=== PATIENT | female | born 1940 | race Caucasian/White ===

== ENCOUNTER → 2023-06-16 11:34 | Outpatient (REF) | payer OTHER, SELFPAY | LOC: HWRAD 11:34 | PROVIDERS: ATTENDING PHYSICIAN Nurse Practitioner Family | DX: M25.511 Pain in right shoulder (principal) | CPT/HCPCS: 73030 ==

== ENCOUNTER 2023-06-27 14:27 | Inpatient (IN) | payer OTHER, SELFPAY ==
[2023-06-25 11:03] VITALS: BP 119/63; BMI 25.7
--- NOTE | 2023-06-25 11:24 | ED.GENMED ---
History of Present Illness
General
Chief Complaint: Extremity Pain (non-traumatic)
Source: patient and family
Exam Limitations: none
Time Seen by Provider: 06/25/23 11:15
Travel History
Have you had any contact with someone who has COVID-19?: No
Do you have any symptoms of coronavirus? Fever > 100 degrees, chills, cough, shortness of breath, sore throat, loss of taste or smell, muscle aches, or headache?: No
History of Present Illness
History of Present Illness:
See MDM
Past History
Past History
ED Past Medical History: CHF, HTN, Hypercholesterolemia and Other (Hearing impaired)
ED Past Surgical History: Other
Patient has exhibited threatening behavior?: No
PSI?: No
Social History
Tobacco: Non-smoker
Alcohol: None
Drug: None
Personal: Other
Living: alone
Employment: Retired
Family History
Family History: Other
Phy Exam
Physical Exam
Physical Exam:
See MDM
Course
Orders/Labs/Results
Orders:
Orders
06/25/23 11:24
Oxycodone [Roxicodone] 5 mg PO NOW STA
06/25/23 12:25
HYDROmorphone [Dilaudid] 0.5 mg IM NOW STA
06/25/23 13:36
Physical Therapy Consult [Pt Eval And Treat] Urgent
Activity Level: Ambulate
06/25/23 14:10
Complete Blood Count/With Diff Urgent
Comprehensive Metabolic Panel Urgent
Abnormal Lab Results
06/25/23
14:10
WBC 12.8 H 10^3/uL
(4.8-10.8)
Hgb 16.2 H g/dL
(12.0-16.0)
MCH 31.3 H pg
(27.0-31.0)
Abs Immat Gran (auto) 0.1 H 10^3/uL
(0-0.05)
Absolute Neuts (auto) 10.7 H 10^3/uL
(1.4-6.5)
Absolute Lymphs (auto) 1.0 L 10^3/uL
(1.2-3.4)
Absolute Monos (auto) 1.0 H 10^3/uL
(0.1-0.6)
Neutrophils % 83.6 H %
(42.2-75.2)
Lymphocytes % 7.5 L %
(20.5-51.1)
Sodium 134 L mmol/L
(135-145)
BUN 35 H mg/dl
(7-17)
Glucose 103 H mg/dl
(70-99)
06/25/23 14:10
06/25/23 14:10
Vital Signs
Initial and Last Documented VS:
Initial Vital Signs
Temp Pulse Resp BP Pulse Ox
98 F 83 16 119/63 99
06/25/23 11:03 06/25/23 11:03 06/25/23 11:03 06/25/23 11:03 06/25/23 11:03
Last Documented Vital Signs
Temp Pulse Resp BP Pulse Ox
98 F 83 16 119/63 99
06/25/23 11:03 06/25/23 11:03 06/25/23 11:03 06/25/23 11:03 06/25/23 11:03
MDM/Problems Addressed
Differential Diagnosis Includes:
HPI and MDM Narrative:
83-year-old female presenting with right shoulder pain. This has been ongoing for the past several days. Patient and daughter stating that she received an outpatient x-ray showing minimal arthritis. She has since followed up with orthopedist and
had an injection of steroids. She is also Toradol but she stopped taking it due to the side effects
On exam, patient has tenderness with certain shoulder movements, especially external rotation. There is no skin changes to suggest infection. Distal extremity neurovascular intact. Given the recent x-ray, we discussed low utility in getting
x-ray. Patient and daughter agree. I discussed the likely diagnosis of rotator cuff injury/strain. We discussed outpatient MRI and physical therapy. Will give dose of oxycodone and evaluate for side effect
Physical exam
General: Well appearing and non-toxic
HEENT: protecting airway
Neck: appears supple
CV: No evidence of cyanosis
Resp: No accessory muscle use
Abd: Non-distended
Extremities: No deformities. Tenderness with right arm external rotation. Distal extremity neurovascularly intact
Neuro: alert
Psych: Normal affect
Skin: Intact
Problems Addressed including Acute and Chronic Conditions affecting care:
1. Rotator cuff strain
Acuity: acute
Prognosis: stable
Details: Will give oxycodone. She denies chest pain or shortness of breath
Updates
Oxycodone did not help. Patient given IM Dilaudid. Patient now becoming dizzy from the side effect of narcotics. Pain is still uncontrolled. Patient failed physical therapy. Family unable to care for her in this state. Will admit
Differential Diagnosis (but not limited to): Shoulder strain, rotator cuff injury
Testing considered: EKG
Drug therapy (if applicable): OTC meds, please see d/c instruction regarding Rx drugs
Amount and/or Complexity of Data Reviewed
Clinical info obtained from: Patient
External data reviewed: N/A
Labs I independently reviewed (but not limited to): Mild leukocytosis, likely from recent steroid injection
Radiology: N/A
Pulse Ox: not hypoxic
EKG independently reviewed: N/A
Administrative Aide: N/A
Critical Care: N/A
Risk of Complication:
Social Determinants of health: Good social support
Discussed with other providers: Hospitalist
Escalation of Care includes Admit/Obs: given her uncontrolled pain and trouble with ADLs, will admit
Occasional wrong word or 'sound a like' substitutions may have occurred due to the inherent limitations of voice recognition software. Read the chart carefully and recognize, using context, where substitutions have occurred.
*Critical Care Note
Total Time (30-74mins, 75-104mins- exclusive of procedures): Not Applicable
ED Attending Note
-
Portions of this chart may have been created with voice recognition software.� Occasional wrong word or��sound alike� substitutions may have occurred due to the inherent limitations of voice recognition software.
Discharge Plan
Departure
Patient Disposition: Admit
Date of Disposition: 06/25/23
Time of Disposition: 16:53
Admit to: Med/Surg
Presentation/result/management discussed w/ accepting MD/DO: Hospitalist
Discharge Problem:
Rotator cuff strain
Prescriptions:
No Action
therapeutic multivitamin Tablet
1 tab PO DAILY
Eliquis 5 mg Tablet
5 mg PO BID Qty: 6 0RF
furosemide 40 mg Tablet
40 mg PO DAILY 30 Days Qty: 30 0RF
dofetilide 250 mcg Capsule
250 mcg PO Q12H 30 Days Qty: 60 0RF
diltiazem HCl 120 mg tablet
120 mg PO DAILY
tramadol 50 mg tablet
50 mg PO Q6H PRN (Reason: moderate pain)
Patient Comments:
06/25/2023: family states made pt whoozy and did not help with pain relief
fluvoxamine 50 mg tablet
50 mg PO HS
Referrals:
Nestor Marshall CRNP [Non-Admitting Privileges] -
Interventions
Interventions:
*Risk Screen - Suicide Last Done: 06/25/23 11:03
*General Assessment Last Done: 06/25/23 11:36
*Neglect/Abuse Screening Last Done: 06/25/23 11:03
ED- Fall Risk Assessment Last Done: 06/25/23 15:21
*ED COVID-19 Vaccine History Last Done: 06/25/23 11:03
ED-Skin Assessment Last Done: 06/25/23 11:36
ED-Peripheral Vascular Assessment Last Done: 06/25/23 11:37
ED-Musculoskeletal Assessment Last Done: 06/25/23 11:36
[2023-06-25] MEDS: ROXICODONE 5 MG PO (11:34)
[2023-06-25] MEDS: DILAUDID 0.5 MG IM (12:29)
[2023-06-25 14:19] LABS: % Basophils 0.1 % (0-2); % Eosinophils 0.5 % (0-6); % Immature Granulocytes 0.5 % (0-0.5); % Lymphocytes 7.5 % (20.5-51.1); % Monocytes 7.8 % (1.7-9.3); % Neutrophils 83.6 % (42.2-75.2); Absolute Eosinophils 0.1 10^3/uL (0-0.7); Absolute Immature Granulocytes 0.1 10^3/uL (0-0.05); Absolute Neutrophils 10.7 10^3/uL (1.4-6.5); Hematocrit 46.3 % (37.0-47.0); Hemoglobin 16.2 g/dL (12.0-16.0); Mean Corpuscular Hgb 31.3 pg (27.0-31.0); Mean Corpuscular Volume 89.4 fL (81.0-99.0); Mean Platelet Volume 9.4 fL (7.4-10.4); Nucleated Red Blood Cells % 0 %; Platelet Count 167 10^3/uL (130-400); Red Blood Cell Count 5.18 10^6/uL (4.20-5.40); Red Cell Dist. Width 13.1 % (11.5-14.5); White Blood Cell Count 12.8 10^3/uL (4.8-10.8)
[2023-06-25 14:37] LABS: ALT (SGPT) 31 U/L (0-35); AST (SGOT) 28 U/L (14-36); Albumin 3.9 g/dl (3.5-5.0); Alkaline Phosphatase 88 U/L (38-126); Blood Urea Nitrogen 35 mg/dl (7-17); Calcium 9.5 mg/dl (8.4-10.2); Carbon Dioxide 27 mmol/L (22-30); Chloride 100 mmol/L (98-107); Estimated Creatinine Clearance 49 ml/min; Glucose 103 mg/dl (70-99); Sodium 134 mmol/L (135-145); Total Bilirubin 1.3 mg/dl (0.2-1.3); eGFR > 60.00
[2023-06-25 14:44] VITALS: BP 104/71; BP 134/68; BP 135/68; PULSE 62; O2SAT 97
--- NOTE | 2023-06-25 18:53 | HPS.HSE ---
Family Physician
-
Family Physician: Albert Richard
Chief Complaint
-
Intractable pain in the right shoulder and right arm
History of Present Illness
83-year-old female was living independently and she is still driving around and doing as sure but the last 3-week moved in to stay with her son, since the Monday before the last she has been having experiencing severe pain in the right shoulder and
the right arm, started suddenly without any trauma or accident no associated fever or chill or cough or congestion or any change skin: No ulceration, saw orthopedic on Dr. Santi Simeon in [place] where she was injected in the right
shoulder, there were no improvement in contrary the pain and limitation of movement got much worse according to the patient, no redness or swelling of the shoulder the pain mostly around the anterior aspect of the right forearm proximally.
Denies any neck pain or any numbness right upper extremity, but normal range of movement of the wrist and fingers but because of the pain she has limited movement of the right elbow and shoulder.
She and family cannot care for herself therefore brought to the hospital for further evaluation.
She is awake, alert and oriented x 3 hold appropriate conversations.
Also she was given tramadol at home she took 3 pills without much relief, also in the ER given a dose of Dilaudid and oxycodone without much relief.
Medical History
Past Medical History
Past Medical History: Reports Other
Additional Past Medical History:
Past medical history reviewed:
A-fib anticoagulated with Eliquis
Hypertension
Social history:
Independently until 10 days ago she moved in with her son because of the pain, no smoking alcohol use.
Family history: Reviewed and noncontributory
Past Surgical History: Reports Other
Social History
Unable to obtain full social history at this time due to: Other
Family History
Family History: Other
Allergies / Home Medications
Allergies reflects when Allergies were last updated in [facility].
Home Medications with original date entered in [facility]
Allergy/Medication List:
Allergies
Allergy/AdvReac Type Severity Reaction Status Date / Time
No Known Allergies Allergy Verified 06/25/23 11:06
Home Medications
therapeutic multivitamin 1 tab PO DAILY Supplement 04/25/22
apixaban 5 mg tablet (Eliquis) 5 mg PO BID #6 tabs 04/29/22
dofetilide 250 mcg capsule 250 mcg PO Q12H 30 days #60 caps 06/25/22
furosemide 40 mg tablet 40 mg PO DAILY 30 days #30 tabs 06/25/22
diltiazem HCl 120 mg tablet 120 mg PO DAILY 09/15/22
fluvoxamine 50 mg tablet 50 mg PO HS 06/25/23
tramadol 50 mg tablet 50 mg PO Q6H PRN moderate pain 06/25/23
Review of Systems
-
A 12 point ROS was completed and negative except as noted: Yes
Physical Exam
Vital Signs
Vital Signs
Temp Pulse Resp BP Pulse Ox
98 F 83 16 119/63 99
06/25/23 11:03 06/25/23 11:03 06/25/23 11:03 06/25/23 11:03 06/25/23 11:03
Physical exam:
General: Awake, alert and oriented x3, not in distress and holds appropriate conversation.
HEENT: No active discharge, ecchymosis or bruising, moist lips, tongue and mucous membrane.
Eyes: No discharge or red conjunctiva, no nystagmus, pupils are reactive and equal
Neck:Supple, no JVD no bruit no goiter.
Respiratory: Normal AP contour and diameter, normal chest wall movement, normal respiratory effort, no respiratory distress,
Lungs: Good air entry bilaterally, no wheezing or rhonchi, no rales or crackles
Heart: S1, S2 regular, normal rate, no added sound.
Gastrointestinal: Positive bowel sounds, soft, nontender, no guarding or rigidity or organomegaly
Musculoskeletal: Limited movement of the right upper extremity mostly shoulder and elbow because of the pain, no redness or rash or swelling of the right shoulder or elbow or arm area, no bulging or mass, no redness or induration at the site of the
injection of the right shoulder,, no chest wall abnormality or tenderness. All Samina joints and extremities have good range of motion, no muscle tenderness or any joint swelling or tenderness.
Extremities: No pitting edema, good peripheral pulses, good range of motion
Skin: Warm and dry, no ulceration, normal color.
Neurological: Awake, alert and oriented x3, cranial nerve II-XII grossly intact, speech clear and comprehensive, good muscle tone, moves all extremities freely
Psychiatric: Normal mood, normal thought and judgment, normal affect,
Physical Exam
General: Other
Laboratory Results
-
06/25/23 14:10
06/25/23 14:10
Laboratory Results
Total Bilirubin 1.3 mg/dl (0.2-1.3) 06/25/23 14:10
AST 28 U/L (14-36) 06/25/23 14:10
ALT 31 U/L (0-35) 06/25/23 14:10
Alkaline Phosphatase 88 U/L (38-126) 06/25/23 14:10
Data Reviewed
-
Lab Data: Labs Reviewed by me, Discussed with Patient and Discussed with Family
Old Records: Reviewed
Impression/Plan
-
IMPRESSION:
83-year-old female who has been in independent living and driving up to 10 days ago when she experienced sudden severe pain in the right shoulder, she got worse after injection by orthopedic 4 days ago as an outpatient.
Concern for arthritis or rotator cuff tear while biceps muscle tendinitis or rupture could be a possibility, bursitis could be another possibility.
Intractable pain in the right arm with failed outpatient treatment or injection of right shoulder
GERD cervical radiculopathy
Limitation of movement because of the pain in the right arm
A-fib anticoagulated with Eliquis
Hypertension
PLAN:
This is affecting acutely daily living as prior to that she was completely dependent and she was still driving. Will admit the patient get an MRI of upper extremity involving the shoulder and elbow joint as well as arm to assess
Ortho consulted and they been contacted
Not respond to Dilaudid and oxycodone will try morphine as needed and reassess
Avoid NSAIDs because of Eliquis
No evidence of infection or skin lesion of shingle even
Continue Eliquis
Cardizem and dofetilide, because of dofetilide will put on cardiac monitoring unit.
PT OT
Heat pad application
All discussed with the patient and the family
CODE STATUS full code
DVT prophylaxis Eliquis
[2023-06-25 19:11] VITALS: BP 138/75
[2023-06-25 19:12] VITALS: BMI 25.7
[2023-06-25 19:20] VITALS: BMI 25.7
--- NOTE | 2023-06-25 19:23 | TRANSFER ---
pt arrived to 3 via stretcher. pt ambulated to bed and connected to polystyrene bead molder. pt assessed and admission done. pt AAox3 and oriented to room. family at bedside.
[2023-06-25 19:41] VITALS: BP 123/68
--- NOTE | 2023-06-25 19:50 | CON.ORTHO ---
Consultation
-
Date/Time Consultation Requested: 06/25/2023; 1899
Date/Time Consultation Performed: 06/25/2023; 1999
Requesting Provider: unknown
Performing Provider: Shirley Cavazos PA-C for Dr. Horace Mcnair
Reason for Consultation: Right shoulder pain
Consultation - Orthopedics
History
Ms. Loza is an 83-year-old female with past medical history of A-fib and hypertension seen today for evaluation of her right shoulder. She reports onset of pain in her shoulder about 2 weeks ago, and denies any injury or inciting event. She
reports no improvement in her symptoms with time. She initially presented to her PCP who prescribed her a Medrol Dospak. She reports no relief from the steroid, so she presented to see Dr. Hancock in [place] where she received a cortisone
injection. She reports her pain and range of motion became much worse following the injection. She localizes pain to her anterior shoulder, upper arm and elbow. She denies pain that radiates past her elbow. She denies neck pain, numbness or
tingling. She has not received any relief from her symptoms with Tylenol, Dilaudid or oxycodone. She denies symptoms like this in the past. She has not been treated for her neck or shoulder in the past. She lives independently until recently
when she moved in with her son. She reports she has otherwise been feeling well and denies any fever or chills.
Allergies / Home Medications
Allergy/AdvReac Type Severity Reaction Status Date / Time
No Known Allergies Allergy Verified 06/25/23 11:06
Medication Instructions Recorded
therapeutic multivitamin 1 tab PO DAILY Supplement 04/25/22
apixaban 5 mg tablet (Eliquis) 5 mg PO BID #6 tabs 04/29/22
dofetilide 250 mcg capsule 250 mcg PO Q12H 30 days #60 caps 06/25/22
furosemide 40 mg tablet 40 mg PO DAILY 30 days #30 tabs 06/25/22
diltiazem HCl 120 mg tablet 120 mg PO DAILY 09/15/22
fluvoxamine 50 mg tablet 50 mg PO HS 06/25/23
tramadol 50 mg tablet 50 mg PO Q6H PRN moderate pain 06/25/23
Vital Signs / Lab Results
Temp Pulse Resp BP Pulse Ox
97.7 F 80 15 138/75 94
06/25/23 19:11 06/25/23 19:11 06/25/23 19:11 06/25/23 19:11 06/25/23 19:11
06/25/23 14:10
06/25/23 14:10
X-ray of the right shoulder taken today and independently interpreted by me reveal overall well-maintained joint spaces without signs of fracture, dislocation or lesions.
Physical exam:
General: Pleasant female in no acute distress, alert and oriented x 3
Head: Atraumatic, normocephalic
Eyes: Sclera anicteric
Ears: Normal hearing
Heart: No edema
Lungs: Normal work of breathing, no audible wheezing
Right shoulder: Mild edema about the right shoulder compared to contralateral side. No obvious erythema, ecchymosis or lesions. No tenderness to palpation about the cervical spine, shoulder or elbow. Patient has essentially no active range of
motion of her right shoulder and elbow secondary to pain. Full range of motion of the cervical spine. Full range of motion of wrist and hand. Neurovascularly intact distally.
Assessment / Plan
Intractable right shoulder pain
--Haley Mcwilliams has experienced about 2 weeks out right shoulder pain that has become much worse following a cortisone injection four days ago. Her exam is very limited today secondary to pain. MRI of the right shoulder was ordered by medical team,
orthopedics will continue to follow for results. In the interim, continue with pain control per primary. Could consider adding oral steroid as patient is on Eliquis and unable to take NSAIDs. I otherwise recommended ice/heat and topical analgesics.
Will place order for lidocaine patches. She may perform ROM of her shoulder and elbow as tolerated. She would likely benefit from PT/OT while admitted.
[2023-06-25] MEDS: TIKOSYN 250 MCG PO (20:43)
[2023-06-25] MEDS: ELIQUIS 5 MG PO (20:43)
[2023-06-25] MEDS: LUVOX 50 MG PO (21:52)
[2023-06-25 23:23] VITALS: BP 129/71
[2023-06-26] VITALS (7 sets, daily range): BP systolic 114–144; BP diastolic 70–81; PULSE 76–82; O2SAT 95; BMI 25.5
[2023-06-26] MEDS: MORPHINE SULFATE 2 MG IV ×4 (00:45→20:57)
[2023-06-26] MEDS: TIKOSYN 250 MCG PO ×2 (08:47→20:59)
[2023-06-26] MEDS: LASIX 40 MG PO (08:48)
[2023-06-26] MEDS: LIDOCAINE 4% PATCH 1 PATCH TOPICAL (08:48)
[2023-06-26] MEDS: ELIQUIS 5 MG PO ×2 (08:48→20:59)
[2023-06-26] MEDS: CARDIZEM CD 120 MG PO (08:48)
--- NOTE | 2023-06-26 12:48 | CM ---
Chart reviewed and spoke with pt at bedside
Pt reports she lives alone in a 2 story home
Independent, shopping, drives
Has no DME in home
Reports has been to SNF in past - [facility]
Denies HH in past
PCP - Dr Silvia Richard
Pharm - [facility]
Will have ride at d/c
PT saw pt - recs SNF. Pt prefers [facility] or [facility]
Will send referral in [facility]
Plan - anticipate transfer to SNF(TBD) when medically ready
--- NOTE | 2023-06-26 14:22 | W.PN.HOSP.TC ---
Documented by User: Javier Porter MD, Resident 06/26/23 15:22
Today's Communication/Plan
-
Follow up with ortho
ACUTE COMPLETE INTRACAPSULAR RUPTURE of the LONG HEAD BICEPS TENDON
FULL-THICKNESS INSERTIONAL TEAR of the SUPRASPINATUS TEND\\
Assessment / Plan
Assessment / Plan
IMPRESSION:
83-year-old female who has been in independent living and driving up to 10 days ago when she experienced sudden severe pain in the right shoulder, she got worse after injection by orthopedic 4 days ago as an outpatient.
Concern for arthritis or rotator cuff tear while biceps muscle tendinitis or rupture could be a possibility, bursitis could be another possibility.
Intractable pain in the right arm with failed outpatient treatment or injection of right shoulder due to FULL-THICKNESS INSERTIONAL TEAR of the SUPRASPINATUS TEND, ACUTE COMPLETE INTRACAPSULAR RUPTURE of the LONG HEAD BICEPS TENDON
GERD
cervical radiculopathy
Limitation of movement because of the pain in the right arm
A-fib anticoagulated with Eliquis
Hypertension
PLAN:
This is affecting acutely daily living as prior to that she was completely dependent and she was still driving.� Will admit the patient get an MRI of upper extremity involving the shoulder and elbow joint as well as arm to assess
Ortho has seen the patient.
MRI of shoulder showed tear in supraspinatus tendon and complete intracapsular rupture of long head of biceps tendon.
Morphine shot given today - improved pain
Oral steroids can be considered with a PPI to avoid GI bleed, continue F/U with ortho
Avoid NSAIDs because of Eliquis- bleeding risk
MRI of shoulder
1. � ACUTE COMPLETE INTRACAPSULAR RUPTURE of the LONG HEAD BICEPS TENDON with distal retraction of the torn tendon fibers 7 cm into the upper arm.
2. � Acute strain or severe tendinosis in the subscapularis tendon.
3. � FULL-THICKNESS INSERTIONAL TEAR of the SUPRASPINATUS TENDON.
4. � Moderate atrophy of the muscles of the right rotator cuff.
5. � Mild subacromial/subdeltoid bursitis.
No evidence of infection or skin lesion of shingle even
Continue Eliquis for afib
Continue home medications
PT OT
Heat pad application
All discussed with the patient and the family
CODE STATUS full code
DVT prophylaxis Eliquis
Anticipated Discharge: 24 - 48 hours
Subjective/Interval History
-
Date of Service: June 26, 2023
Objective Data
-
Vital Signs:
Vital Signs
Temp Pulse Resp BP Pulse Ox
97.7 F 74 18 125/71 97
06/26/23 11:00 06/26/23 11:00 06/26/23 11:00 06/26/23 11:00 06/26/23 11:00
I&O
06/25/23 06/26/23 06/27/23
06:59 06:59 06:59
Intake Total 440 / 440
Balance 440 / 440
Review of Systems
-
History Source: Patient
Physical Exam
-
General: Appears in Distress and Pain
HEENT: Normocephalic, Atraumatic and Moist Mucous Membranes
Respiratory: Clear to Auscultation
Cardiac: Regular Rhythm
Breast: Deferred by me
Musculoskeletal: Other (intense pain in right UE, limited active range of motion)

Documented by User: Enzo Stewart MD 06/26/23 21:49
Review of Systems
-
All other systems: Reviewed and negative
Constitutional: Reports Fatigue
EENT: Reports No Symptoms Reported
Respiratory: Reports No Symptoms
Cardiac: Reports No Symptoms
Abdomen/GI: Reports No Symptoms
Genitourinary: Reports No Symptoms
Musculoskeletal: Reports Muscle Pain (RUE) and Muscle Weakness
Skin: Reports No Symptoms
Neuro: Reports No Symptoms
Psych: Reports Depressed
Physical Exam
-
GI: Soft, Nontender, Nondistended and Normal Bowel Sounds
Musculoskeletal: No Edema
Neuro: AO x 3; Negative No Motor Deficits
Data Reviewed
-
Diagnostic Radiology: Report Reviewed by me
MRI: Report Reviewed by me
Labs: Labs Reviewed by me and Discussed with Physician
[2023-06-26] MEDS: LUVOX 50 MG PO (21:00)
[2023-06-27] VITALS (7 sets, daily range): BP systolic 108–140; BP diastolic 65–76; PULSE 74; O2SAT 100
[2023-06-27 06:04] LABS: Hematocrit 43.5 % (37.0-47.0); Hemoglobin 14.9 g/dL (12.0-16.0); Mean Corp Hgb Conc. 34.3 g/dL (33.0-37.0); Mean Corpuscular Volume 90.4 fL (81.0-99.0); Mean Platelet Volume 9.9 fL (7.4-10.4); Platelet Count 141 10^3/uL (130-400); Red Blood Cell Count 4.81 10^6/uL (4.20-5.40); Red Cell Dist. Width 13.1 % (11.5-14.5); White Blood Cell Count 8.7 10^3/uL (4.8-10.8)
[2023-06-27 06:34] LABS: Blood Urea Nitrogen 30 mg/dl (7-17); Calcium 8.9 mg/dl (8.4-10.2); Carbon Dioxide 26 mmol/L (22-30); Chloride 104 mmol/L (98-107); Estimated Creatinine Clearance 49 ml/min; Glucose 97 mg/dl (70-99); Potassium 4.2 mmol/L (3.5-5.1); Sodium 131 mmol/L (135-145); eGFR > 60.00
--- NOTE | 2023-06-27 08:01 | W.PN.UPDATE ---
Update Note
Progress Note Update
Patient continues with biceps pain which radiates down towards the elbow. Range of motion still diminished. Exam right shoulder no effusion, warmth, erythema or pain. Generalized pain noted in the biceps and down towards the distal biceps tendon.
Passive motion right elbow and shoulder nonpainful. During range of motion testing there is some burning in the biceps region. Global rotator cuff weakness noted. Subtle Elan muscle noted biceps. Distal neurovascular was intact.
MRI right shoulder shows tear full-thickness tear involving supraspinatus with moderate atrophy, rupture long head biceps tendon with moderate fluid accumulation (likely bleeding) and bursitis. No evidence of fracture, dislocation or shoulder
effusion.
Patient unfortunately had a rupture long head biceps tendon which seems to be primary source of her pain. Since she is on Eliquis she likely had more bleeding in this region which is causing pain in her upper arm. Continue with conservative
treatment modalities for pain and include formal physical therapy. She could consider tapering steroid to help decrease inflammation. This should improve in time. She does have a rotator cuff tear which she can discuss definitive treatment at a
later date with her orthopedic surgeon.
--- NOTE | 2023-06-27 08:02 | W.PN.HOSP.TC ---
Documented by User: Javier Porter MD, Resident 06/27/23 16:09
Today's Communication/Plan
-
SIADH
urine sodium, osmolality, serum sodium, serum osmolality
Assessment / Plan
Assessment / Plan
IMPRESSION:
83-year-old female who has been in independent living and driving up to 10 days ago when she experienced sudden severe pain in the right shoulder, she got worse after injection by orthopedic 4 days ago as an outpatient. MRI confirmed rotator cuff
tear and rupture of long biceps tendon.
Rotator cuff tear and rupture of long biceps tendon
Normovolemic Hyponatremia
GERD
cervical radiculopathy
Limitation of movement because of the pain in the right arm
A-fib anticoagulated with Eliquis
Hypertension
PLAN:
Rotator cuff tear and rupture of long biceps tendon :
This is affecting acutely daily living as prior to that she was completely dependent and she was still driving.� Will admit the patient get an MRI of upper extremity involving the shoulder and elbow joint as well as arm to assess
Ortho has seen the patient.
MRI of shoulder showed tear in supraspinatus tendon and complete intracapsular rupture of long head of biceps tendon.
Morphine shot given today - improved pain
Oral steroids can be considered with a PPI to avoid GI bleed.
Ortho suggested pain management and outpatient f/u for surgery
Avoid NSAIDs because of Eliquis- bleeding risk
MRI of shoulder
1. � ACUTE COMPLETE INTRACAPSULAR RUPTURE of the LONG HEAD BICEPS TENDON with distal retraction of the torn tendon fibers 7 cm into the upper arm.
2. � Acute strain or severe tendinosis in the subscapularis tendon.
3. � FULL-THICKNESS INSERTIONAL TEAR of the SUPRASPINATUS TENDON.
4. � Moderate atrophy of the muscles of the right rotator cuff.
5. � Mild subacromial/subdeltoid bursitis.
Normovolemic Hyponatremia
- Suspect SIADH - fluid restriction to 1800 ml
- checking urine Na, urine osmolality, serum Na, serum osmolality
No evidence of infection or skin lesion of shingle even
Continue Eliquis for afib
Continue home medications
PT OT
Heat pad application
All discussed with the patient and the family
CODE STATUS full code
DVT prophylaxis Eliquis
Anticipated Discharge: Within 24 hours
Subjective/Interval History
-
Date of Service: June 27, 2023
Objective Data
-
Labs:
Laboratory Results
06/27/23
05:27
WBC 8.7
Hgb 14.9
Hct 43.5
Plt Count 141
Sodium 131 L
Potassium 4.2
Chloride 104
Carbon Dioxide 26
BUN 30 H
Creatinine 0.7
Glucose 97
Calcium 8.9
Vital Signs:
Vital Signs
Temp Pulse Resp BP Pulse Ox
97.8 F 67 18 140/76 96
06/27/23 03:00 06/27/23 03:00 06/27/23 03:00 06/27/23 03:00 06/27/23 03:00
I&O
06/26/23 06/27/23 06/28/23
06:59 06:59 06:59
Intake Total 440 / 440 510 / 510
Balance 440 / 440 510 / 510
Review of Systems
-
EENT: Reports No Symptoms Reported
Respiratory: Reports No Symptoms
Cardiac: Reports No Symptoms
Abdomen/GI: Reports No Symptoms
Breast: Reports No Symptoms
Genitourinary: Reports No Symptoms
Musculoskeletal: Reports Joint Pain, Muscle Pain and Muscle Weakness
Skin: Reports No Symptoms
Neuro: Reports No Symptoms
Endocrine: Reports No Symptoms
Physical Exam
-
General: Well Developed and Pain
HEENT: Normocephalic and Atraumatic
Respiratory: Clear to Auscultation
Cardiac: Regular Rhythm
Breast: Deferred by me
GI: Soft, Nontender and Nondistended
Musculoskeletal: No Edema and Other (limited ROM of right shoulder and right arm, can passively extend right arm, no active ROM.)
Skin: Warm and Dry
Neuro: Awake, Alert and Oriented
Hematologic / Lymphatic: No Lymphadenopathy
Psych: Calm

Documented by User: London Stewart MD 06/27/23 21:38
Assessment / Plan
Assessment / Plan
IMPRESSION:
83-year-old female who has been in independent living and driving up to 10 days ago when she experienced sudden severe pain in the right shoulder, she got worse after injection by orthopedic 4 days ago as an outpatient. MRI confirmed rotator cuff
tear and rupture of long biceps tendon.
Rotator cuff tear and rupture of long biceps tendon
Normovolemic Hyponatremia
GERD
cervical radiculopathy
Limitation of movement because of the pain in the right arm
A-fib anticoagulated with Eliquis
Hypertension
PLAN:
Rotator cuff tear and rupture of long biceps tendon :
This is affecting acutely daily living as prior to that she was completely dependent and she was still driving.� Will admit the patient get an MRI of upper extremity involving the shoulder and elbow joint as well as arm to assess
Ortho has seen the patient.
MRI of shoulder showed tear in supraspinatus tendon and complete intracapsular rupture of long head of biceps tendon.
Morphine shot given today - improved pain
Oral steroids can be considered with a PPI to avoid GI bleed.
Ortho suggested pain management and outpatient f/u for surgery
Avoid NSAIDs because of Eliquis- bleeding risk
MRI of shoulder
1. � ACUTE COMPLETE INTRACAPSULAR RUPTURE of the LONG HEAD BICEPS TENDON with distal retraction of the torn tendon fibers 7 cm into the upper arm.
2. � Acute strain or severe tendinosis in the subscapularis tendon.
3. � FULL-THICKNESS INSERTIONAL TEAR of the SUPRASPINATUS TENDON.
4. � Moderate atrophy of the muscles of the right rotator cuff.
5. � Mild subacromial/subdeltoid bursitis.
Normovolemic Hyponatremia
- Suspect SIADH - fluid restriction to 1800 ml
- checking urine Na, urine osmolality, serum Na, serum osmolality
No evidence of infection or skin lesion of shingle even
Continue Eliquis for afib
Continue home medications
PT OT
Heat pad application
All discussed with the patient and the family
CODE STATUS full code
DVT prophylaxis Eliquis
Attending Addendum-
I saw and evaluated the patient. I reviewed the resident�s note and agree with findings and plan as documented in the resident�s note. patient with pain in right arm and shoulder. exam- limited ROM RUE Plan: Rotator Cuff tear and biceps tendon tear-
f/u as OP with patient ortho surgeon as she prefers, start teroids x 5 days add ppi, pain control WBAT Hyponatremia- r/o SIADH fluid restrict
Time spent coordinating care, review of plan of care with resident, review of records, med rec, consults, notes, labs, rads, d/w nursing - 35 mins
Anticipated Discharge: 24 - 48 hours
Review of Systems
-
All other systems: Reviewed and negative
[2023-06-27] MEDS: TIKOSYN 250 MCG PO ×2 (08:38→19:52)
[2023-06-27] MEDS: ELIQUIS 5 MG PO ×2 (08:39→19:52)
[2023-06-27] MEDS: LIDOCAINE 4% PATCH 1 PATCH TOPICAL (08:39)
[2023-06-27] MEDS: LASIX 40 MG PO (08:39)
[2023-06-27] MEDS: CARDIZEM CD 120 MG PO (08:39)
[2023-06-27] MEDS: MORPHINE SULFATE 2 MG IV ×3 (08:49→19:52)
--- NOTE | 2023-06-27 16:15 | CM ---
CM met with pt
Status changed to inpatient
Waiting on PT/OT eval
Plan - snf vs home PT at d/c
[2023-06-27 16:47] LABS: Osmolality Serum 286 mOsm/kg (275-300)
[2023-06-27 16:57] LABS: Sodium 132 mmol/L (135-145)
[2023-06-27 20:39] LABS: Urine Sodium 5 mmol/L (30-90)
[2023-06-27] MEDS: LUVOX 50 MG PO (22:22)
[2023-06-28] VITALS (7 sets, daily range): BP systolic 108–130; BP diastolic 62–75; PULSE 75; BMI 25.3
[2023-06-28] MEDS: LASIX 40 MG PO (07:39)
[2023-06-28] MEDS: PROTONIX 40 MG PO (07:39)
[2023-06-28] MEDS: CARDIZEM CD 120 MG PO (07:39)
[2023-06-28] MEDS: TIKOSYN 250 MCG PO ×2 (07:40→20:59)
[2023-06-28] MEDS: DELTASONE 40 MG PO (07:40)
[2023-06-28] MEDS: LIDOCAINE 4% PATCH 1 PATCH TOPICAL (07:40)
[2023-06-28] MEDS: ELIQUIS 5 MG PO (07:40)
[2023-06-28] MEDS: MORPHINE SULFATE 2 MG IV ×2 (09:10→13:30)
[2023-06-28 09:26] LABS: % Basophils 0.2 % (0-2); % Eosinophils 1.1 % (0-6); % Immature Granulocytes 0.4 % (0-0.5); % Lymphocytes 10.2 % (20.5-51.1); % Monocytes 6.4 % (1.7-9.3); % Neutrophils 81.7 % (42.2-75.2); Absolute Eosinophils 0.1 10^3/uL (0-0.7); Absolute Lymphocytes 1.2 10^3/uL (1.2-3.4); Absolute Monocytes 0.7 10^3/uL (0.1-0.6); Absolute Neutrophils 9.3 10^3/uL (1.4-6.5); Hematocrit 47.8 % (37.0-47.0); Hemoglobin 17.1 g/dL (12.0-16.0); Mean Corp Hgb Conc. 35.8 g/dL (33.0-37.0); Mean Corpuscular Volume 89.5 fL (81.0-99.0); Mean Platelet Volume 9.8 fL (7.4-10.4); Nucleated Red Blood Cells % 0 %; Platelet Count 151 10^3/uL (130-400); Red Blood Cell Count 5.34 10^6/uL (4.20-5.40); White Blood Cell Count 11.3 10^3/uL (4.8-10.8)
[2023-06-28 09:37] LABS: Blood Urea Nitrogen 32 mg/dl (7-17); Calcium 9.2 mg/dl (8.4-10.2); Carbon Dioxide 27 mmol/L (22-30); Chloride 101 mmol/L (98-107); Estimated Creatinine Clearance 49 ml/min; Glucose 110 mg/dl (70-99); Potassium 3.7 mmol/L (3.5-5.1); Sodium 132 mmol/L (135-145); eGFR > 60.00
--- NOTE | 2023-06-28 15:11 | W.PN.UPDATE ---
Update Note
Progress Note Update
Received TT from patient's nurse Suzanna Trish that patient would like orthopedics here at [facility] to do her right shoulder surgery. I was able to review patient's history and MRI with Dr. Mitchell. After discussing she will be sent to
Interventional Radiology to have aspiration of the fluid around the tendon sheath. Fluid will be sent for analysis. She may see improvement with this aspiration, prednisone (which just started) and continued formal physical therapy. Hopefully with
these conservative treatments she may feel better in a few days and can do surgery on more of an elective basis sometime in the near future. Since patient is on Eliquis it will need to be held before proceeding with surgery. 72-hour washout
required. Discussed with London Blanton MD.
[2023-06-28] MEDS: ROXICODONE 5 MG PO (16:57)
--- NOTE | 2023-06-28 17:36 | W.PN.HOSP.TC ---
Addendum entered and electronically signed by London Stewart MD 06/30/23 09:10:
attending addendum 06/28 attached to progress note from 06/27 in error
Enzo Stewart MD
Addendum entered and electronically signed by London Stewart MD 06/29/23 23:16:
Attending Addendum DOS 06/29/23
I saw and evaluated the patient. I reviewed the resident�s note and agree with findings and plan as documented in the resident�s note. continues to complain of extreme pain in right shoulder and biceps but appears comfortable. exam- Gen nad heart
RRR lungs clear abd soft LE trace edema b/l RUE limited ROM-no pain on passive movement
Plan:
# Rotator Cuff tear and biceps tendon tear- s/p IR arthropathy, removal of minimal amount of blood- sent for bx, resume Eliquis after 48 hours, ortho on board appreciate input, f/u as OP for surgery next week, hold Eliquis 72 hours prior, cont
steroids x 5 days cont oral narcs for DC home, cont ppi, WBAT PT OT SW c/s
# Hypovolemic Hyponatremia- r/o SIADH - start IVF repeat labs in am
# A fib- hold eliquis may resume after procedure 48 hours
Dispo Eventual DC home lives alone
Time spent coordinating care, review of plan of care with resident, review of records, med rec, consults, notes, labs, rads, d/w nursing - 35 mins
Addendum entered and electronically signed by London Stewart MD 06/28/23 22:04:
Attending Addendum-06/28/23
I saw and evaluated the patient. I reviewed the resident�s note and agree with findings and plan as documented in the resident�s note. continues to have pain in right arm and shoulder. exam- limited ROM buring sensation in upper arm RUE
Plan:
# Rotator Cuff tear and biceps tendon tear- for IR removal of blood in am, hold eliquis, ortho on board, f/u as OP for surgery next week, hold Eliquis 72 hours prior, cont steroids x 5 days add oral narcs for DC home, add ppi, WBAT PT OT SW c/s
# Hypovolemic Hyponatremia- r/o SIADH fluid restrict check labs na 132 repeat in am
# A fib- hold eliquis may resume after procedure
Time spent coordinating care, review of plan of care with resident, review of records, med rec, consults, notes, labs, rads, d/w nursing - 55 mins
Original Note:
Documented by User: Javier Porter MD, Resident 06/28/23 17:45
Today's Communication/Plan
-
Patient will be going to IR- suspect bleed from tear
-stopping Eliquis 72 prior to surgery
oxycodone
bowel regimen
Assessment / Plan
Assessment / Plan
IMPRESSION:
83-year-old female who has been in independent living and driving up to 10 days ago when she experienced sudden severe pain in the right shoulder, she got worse after injection by orthopedic 4 days ago as an outpatient. MRI confirmed rotator cuff
tear and rupture of long biceps tendon.
Rotator cuff tear and rupture of long biceps tendon
Normovolemic Hyponatremia
GERD
cervical radiculopathy
Limitation of movement because of the pain in the right arm
A-fib anticoagulated with Eliquis
Hypertension
PLAN:
Rotator cuff tear and rupture of long biceps tendon :
This is affecting acutely daily living as prior to that she was completely dependent and she was still driving.� Will admit the patient get an MRI of upper extremity involving the shoulder and elbow joint as well as arm to assess
Ortho has seen the patient.
Oral steroids can be considered with a PPI to avoid GI bleed.
Ortho suggested pain management and outpatient f/u for surgery
Avoid NSAIDs because of Eliquis- bleeding risk
- Ortho has seen patient and suspects bleed from the tear, patient will be going to IR for further evaluation
- Stopping Eliquis 72 hours before surgery
- adding PO Oxycodone q6, continue IV morphine
- Bowel regimen- Miralax
MRI of shoulder
1. � ACUTE COMPLETE INTRACAPSULAR RUPTURE of the LONG HEAD BICEPS TENDON with distal retraction of the torn tendon fibers 7 cm into the upper arm.
2. � Acute strain or severe tendinosis in the subscapularis tendon.
3. � FULL-THICKNESS INSERTIONAL TEAR of the SUPRASPINATUS TENDON.
4. � Moderate atrophy of the muscles of the right rotator cuff.
5. � Mild subacromial/subdeltoid bursitis.
Normovolemic Hyponatremia
- Suspect SIADH - fluid restriction to 1800 ml
- checking urine Na, urine osmolality, serum Na, serum osmolality
- urine sodium and serum sodium low- not likely SIADH
- repeat BMP in am
No evidence of infection or skin lesion of shingle even
Continue Eliquis for afib
Continue home medications
PT OT
Heat pad application
All discussed with the patient and the family
CODE STATUS full code
DVT prophylaxis Eliquis
Attending Addendum-
I saw and evaluated the patient. I reviewed the resident�s note and agree with findings and plan as documented in the resident�s note. patient with pain in right arm and shoulder. exam- limited ROM RUE Plan: Rotator Cuff tear and biceps tendon tear-
f/u as OP with patient ortho surgeon as she prefers, start teroids x 5 days add ppi, pain control WBAT Hyponatremia- r/o SIADH fluid restrict
Time spent coordinating care, review of plan of care with resident, review of records, med rec, consults, notes, labs, rads, d/w nursing - 35 mins
Anticipated Discharge: 24 - 48 hours
Subjective/Interval History
-
Date of Service: June 28, 2023
Objective Data
-
Labs:
Laboratory Results
06/28/23
09:11
WBC 11.3 H
Hgb 17.1 H
Hct 47.8 H
Plt Count 151
Sodium 132 L
Potassium 3.7
Chloride 101
Carbon Dioxide 27
BUN 32 H
Creatinine 0.7
Glucose 110 H
Calcium 9.2
Vital Signs:
Vital Signs
Temp Pulse Resp BP Pulse Ox
98.2 F 75 16 120/66 94
06/28/23 15:00 06/28/23 15:00 06/28/23 15:00 06/28/23 15:00 06/28/23 15:00
I&O
06/27/23 06/28/23 06/29/23
06:59 06:59 06:59
Intake Total 510 / 510 1440 / 1440
Balance 510 / 510 1440 / 1440
Review of Systems
-
All other systems: Reviewed and negative (except as documented )
Musculoskeletal: Reports Joint Pain and Other (limited ROM in right shoulder and right arm )
Physical Exam
-
General: Well Developed and Well Nourished
HEENT: Normocephalic and Atraumatic
Respiratory: Clear to Auscultation
Cardiac: Regular Rhythm
Breast: Deferred by me
GI: Soft, Nontender and Nondistended
Genito-urinary: Deferred by me
Musculoskeletal: No Edema
Skin: Warm and Dry
Neuro: Awake, Alert and Oriented
Hematologic / Lymphatic: No Lymphadenopathy
Psych: Calm
Data Reviewed
-
MRI: Discussed with Physician
Labs: Labs Reviewed by me and Discussed with Physician

Documented by User: London Stewart MD 06/28/23 21:56
Assessment / Plan
Assessment / Plan
IMPRESSION:
83-year-old female who has been in independent living and driving up to 10 days ago when she experienced sudden severe pain in the right shoulder, she got worse after injection by orthopedic 4 days ago as an outpatient. MRI confirmed rotator cuff
tear and rupture of long biceps tendon.
Rotator cuff tear and rupture of long biceps tendon
Normovolemic Hyponatremia
GERD
cervical radiculopathy
Limitation of movement because of the pain in the right arm
A-fib anticoagulated with Eliquis
Hypertension
PLAN:
Rotator cuff tear and rupture of long biceps tendon :
This is affecting acutely daily living as prior to that she was completely dependent and she was still driving.� Will admit the patient get an MRI of upper extremity involving the shoulder and elbow joint as well as arm to assess
Ortho has seen the patient.
Oral steroids can be considered with a PPI to avoid GI bleed.
Ortho suggested pain management and outpatient f/u for surgery
Avoid NSAIDs because of Eliquis- bleeding risk
- Ortho has seen patient and suspects bleed from the tear, patient will be going to IR for further evaluation
- Stopping Eliquis 72 hours before surgery
- adding PO Oxycodone q6, continue IV morphine
- Bowel regimen- Miralax
MRI of shoulder
1. � ACUTE COMPLETE INTRACAPSULAR RUPTURE of the LONG HEAD BICEPS TENDON with distal retraction of the torn tendon fibers 7 cm into the upper arm.
2. � Acute strain or severe tendinosis in the subscapularis tendon.
3. � FULL-THICKNESS INSERTIONAL TEAR of the SUPRASPINATUS TENDON.
4. � Moderate atrophy of the muscles of the right rotator cuff.
5. � Mild subacromial/subdeltoid bursitis.
Normovolemic Hyponatremia
- Suspect SIADH - fluid restriction to 1800 ml
- checking urine Na, urine osmolality, serum Na, serum osmolality
- urine sodium and serum sodium low- not likely SIADH
- repeat BMP in am
No evidence of infection or skin lesion of shingle even
Continue Eliquis for afib
Continue home medications
PT OT
Heat pad application
All discussed with the patient and the family
CODE STATUS full code
DVT prophylaxis Eliquis
Subjective/Interval History
-
Continues to complain of pain in right arm.
Review of Systems
-
Constitutional: Denies Fever or Weight Gain
Respiratory: Reports No Symptoms
Cardiac: Reports No Symptoms
Abdomen/GI: Reports No Symptoms
[2023-06-28] MEDS: MIRALAX PO (18:31)
[2023-06-28] MEDS: LUVOX 50 MG PO (20:59)
[2023-06-28 21:45] LABS: Urine Albumin Trace (Neg - Trace); Urine Bilirubin Negative (Negative); Urine Character Slightly Cloudy (Clear); Urine Color Yellow; Urine Glucose Negative (Negative); Urine Ketone Trace (Negative); Urine Leukocyte 2+ (Negative); Urine Nitrite Negative (Negative); Urine Occult Blood 3+ (Negative); Urine Urobilinogen Negative (Neg - 1+)
[2023-06-28 21:49] LABS: Osmolality Urine 794 mOsm/kg (300-900)
[2023-06-28 21:51] LABS: Urine Squamous Cell 0-2 /LPF (Few); Urine White Cell >100 /HPF (0-5)
[2023-06-28 21:52] LABS: Urine Bacteria Many (Negative)
[2023-06-29] VITALS (7 sets, daily range): BP systolic 71–134; BP diastolic 62–87; PULSE 77; BMI 25.4
[2023-06-29 05:59] LABS: % Basophils 0.2 % (0-2); % Eosinophils 0.3 % (0-6); % Immature Granulocytes 0.5 % (0-0.5); % Lymphocytes 8.3 % (20.5-51.1); % Monocytes 7.8 % (1.7-9.3); % Neutrophils 82.9 % (42.2-75.2); Absolute Immature Granulocytes 0.1 10^3/uL (0-0.05); Absolute Monocytes 0.9 10^3/uL (0.1-0.6); Absolute Neutrophils 9.4 10^3/uL (1.4-6.5); Hematocrit 42.1 % (37.0-47.0); Hemoglobin 14.8 g/dL (12.0-16.0); Mean Corp Hgb Conc. 35.2 g/dL (33.0-37.0); Mean Corpuscular Hgb 31.5 pg (27.0-31.0); Mean Corpuscular Volume 89.6 fL (81.0-99.0); Mean Platelet Volume 9.6 fL (7.4-10.4); Nucleated Red Blood Cells % 0 %; Platelet Count 142 10^3/uL (130-400); Red Cell Dist. Width 12.9 % (11.5-14.5); White Blood Cell Count 11.4 10^3/uL (4.8-10.8)
[2023-06-29 06:18] LABS: Blood Urea Nitrogen 30 mg/dl (7-17); Carbon Dioxide 28 mmol/L (22-30); Chloride 100 mmol/L (98-107); Estimated Creatinine Clearance 49 ml/min; Glucose 116 mg/dl (70-99); Sodium 131 mmol/L (135-145); eGFR > 60.00
--- NOTE | 2023-06-29 08:31 | W.PN.UPDATE ---
Update Note
Progress Note Update
Patient continues with right shoulder pain. Consult placed to IR for aspiration around biceps tendon sheath (per MRI). Expecting this to be a bloody yield, but will send for analysis to rule out infection. At this point would continue with PT, as
well as the steroids she is currently on. Hopefully we will note improvement, but can potentially consider surgical options based on fluid results. Will need an Eliquis washout in the interim. Will follow up on IR aspirate results
[2023-06-29] MEDS: PROTONIX 40 MG PO (09:01)
[2023-06-29] MEDS: TIKOSYN 250 MCG PO ×2 (09:01→20:18)
[2023-06-29] MEDS: LIDOCAINE 4% PATCH 1 PATCH TOPICAL (09:01)
[2023-06-29] MEDS: DELTASONE 40 MG PO (09:01)
[2023-06-29] MEDS: LASIX 40 MG PO (09:02)
[2023-06-29] MEDS: CARDIZEM CD 120 MG PO (09:02)
[2023-06-29] MEDS: MIRALAX 17 GRAMS PO (09:02)
[2023-06-29] MEDS: MORPHINE SULFATE 2 MG IV ×2 (09:19→18:33)
[2023-06-29] MEDS: ROXICODONE 5 MG PO (13:34)
--- NOTE | 2023-06-29 13:40 | W.PN.HOSP.TC ---
Addendum entered and electronically signed by London Stewart MD 06/30/23 09:12:
Attending Addendum DOS 06/29/23
I saw and evaluated the patient. I reviewed the resident�s note and agree with findings and plan as documented in the resident�s note. continues to complain of extreme pain in right shoulder and biceps but appears comfortable. exam- Gen nad heart
RRR lungs clear abd soft LE trace edema b/l RUE limited ROM-no pain on passive movement
Plan:
# Rotator Cuff tear and biceps tendon tear- s/p IR arthropathy, removal of minimal amount of blood- sent for bx, resume Eliquis after 48 hours, ortho on board appreciate input, f/u as OP for surgery next week, hold Eliquis 72 hours prior, cont
steroids x 5 days cont oral narcs for DC home, cont ppi, WBAT PT OT SW c/s
# Hypovolemic Hyponatremia- r/o SIADH - start IVF repeat labs in am
# A fib- hold eliquis may resume after procedure 48 hours
Dispo Eventual DC home lives alone
Time spent coordinating care, review of plan of care with resident, review of records, med rec, consults, notes, labs, rads, d/w nursing - 35 mins
Original Note:
Today's Communication/Plan
-
f/u with ortho and IR
Assessment / Plan
Assessment / Plan
IMPRESSION:
83-year-old female who has been in independent living and driving up to 10 days ago when she experienced sudden severe pain in the right shoulder, she got worse after injection by orthopedic 4 days ago as an outpatient. MRI confirmed rotator cuff
tear and rupture of long biceps tendon.
Rotator cuff tear and rupture of long biceps tendon
Normovolemic Hyponatremia
GERD
cervical radiculopathy
Limitation of movement because of the pain in the right arm
A-fib anticoagulated with Eliquis
Hypertension
PLAN:
Rotator cuff tear and rupture of long biceps tendon :
This is affecting acutely daily living as prior to that she was completely dependent and she was still driving.� Will admit the patient get an MRI of upper extremity involving the shoulder and elbow joint as well as arm to assess
Ortho has seen the patient.
Oral steroids can be considered with a PPI to avoid GI bleed.
Avoid NSAIDs because of Eliquis- bleeding risk
- Ortho has seen patient and suspects bleed from the tear, patient will be going to IR for further evaluation
- Stopping Eliquis 72 hours before surgery
- adding PO Oxycodone q6, continue IV morphine
- Bowel regimen- Miralax
- Await for IR, continue to follow up with the result of aspirate. Following with ortho team.
MRI of shoulder
1. � ACUTE COMPLETE INTRACAPSULAR RUPTURE of the LONG HEAD BICEPS TENDON with distal retraction of the torn tendon fibers 7 cm into the upper arm.
2. � Acute strain or severe tendinosis in the subscapularis tendon.
3. � FULL-THICKNESS INSERTIONAL TEAR of the SUPRASPINATUS TENDON.
4. � Moderate atrophy of the muscles of the right rotator cuff.
5. � Mild subacromial/subdeltoid bursitis.
Normovolemic Hyponatremia
- checking urine Na, urine osmolality, serum Na, serum osmolality
- urine sodium and serum sodium low- not likely SIADH
- repeat BMP in am
No evidence of infection or skin lesion of shingle even
Continue Eliquis for afib
Continue home medications
PT OT
Heat pad application
All discussed with the patient and the family
CODE STATUS full code
DVT prophylaxis Eliquis
Anticipated Discharge: Within 24 hours
Subjective/Interval History
-
Date of Service: June 29, 2023
Patient c/o of persistent pain in right shoulder and right arm.
Objective Data
-
Labs:
Laboratory Results
06/29/23
05:41
WBC 11.4 H
Hgb 14.8
Hct 42.1
Plt Count 142
Sodium 131 L
Potassium 4.0
Chloride 100
Carbon Dioxide 28
BUN 30 H
Creatinine 0.7
Glucose 116 H
Calcium 9.0
Vital Signs:
Vital Signs
Temp Pulse Resp BP Pulse Ox
97.8 F 77 17 130/73 98
06/29/23 12:01 06/29/23 12:01 06/29/23 12:01 06/29/23 12:01 06/29/23 12:01
I&O
06/28/23 06/29/23 06/30/23
06:59 06:59 06:59
Intake Total 1440 / 1440 240 / 240
Balance 1440 / 1440 240 / 240
Review of Systems
-
All other systems: Reviewed and negative (except mentioned )
Musculoskeletal: Reports Joint Pain and Muscle Pain
Physical Exam
-
General: Well Developed and Well Nourished
HEENT: Normocephalic and Atraumatic
Respiratory: Clear to Auscultation
Cardiac: Regular Rhythm and S1/S2
Breast: Deferred by me
GI: Soft, Nontender and Nondistended
Musculoskeletal: No Edema
Skin: Warm and Dry
Neuro: Awake, Alert and Oriented
Hematologic / Lymphatic: No Lymphadenopathy
Psych: Anxious
Data Reviewed
-
Labs: Labs Reviewed by me and Discussed with Physician
[2023-06-29] MEDS: LUVOX 50 MG PO (22:20)
[2023-06-30] VITALS (7 sets, daily range): BP systolic 109–132; BP diastolic 62–72; PULSE 81; O2SAT 95; BMI 25.4
--- NOTE | 2023-06-30 07:24 | W.PN.HOSP.TC ---
Addendum entered and electronically signed by London Stewart MD 06/30/23 23:38:
Attending Addendum
I saw and evaluated the patient. I reviewed the resident�s note and agree with findings and plan as documented in the resident�s note. pain improved doesnt want surgery. seen with son present. advising to get surgery. Patient anxious and hard of
hearing. unable to make up mind. exam- Gen NAD heart RRR lungs clear abd soft LE trace edema b/l RUE limited ROM-no pain on passive movement
Plan:
# Rotator Cuff tear and biceps tendon tear- s/p IR arthrocentesis 06/28, removal of minimal amount of blood- sent for bx- resume Eliquis in am, ortho on board appreciate input, f/u as OP for surgery next week monday if patient agreeable, hold
Eliquis 72 hours prior, f/u ortho in office on monday, complete steroids 07/01, cont oral narcs for DC home but patient now unable to care for herself at home, SW aware PT, cont ppi, WBAT SW c/s
# Asymptomatic Bacteruria- hold off on abx
# Hypovolemic Hyponatremia-cont IVF repeat labs in am
# A fib- restart eliquis in am cont tikosyn/CCB
Dispo-lives alone- requesting SNF on DC DC to [facility] 07/01
Time spent coordinating care, review of plan of care with resident, review of records, med rec, consults, notes, labs, rads, d/w nursing ortho, son, daughter- 50 mins
Original Note:
Today's Communication/Plan
-
Talked to the patient about discharge today. Patient's family cannot take full reponsibility of the patient at home, looking for an available bed at [facility]. Will be discharged in the weekend once the bed is available
Advised patient to f/u with ortho outpatient. Talked to the orthopedist
Assessment / Plan
Assessment / Plan
IMPRESSION:
83-year-old female who has been in independent living and driving up to 10 days ago when she experienced sudden severe pain in the right shoulder, she got worse after injection by orthopedic 4 days ago as an outpatient. MRI confirmed rotator cuff
tear and rupture of long biceps tendon.
Rotator cuff tear and rupture of long biceps tendon
Normovolemic Hyponatremia
GERD
cervical radiculopathy
Limitation of movement because of the pain in the right arm
A-fib anticoagulated with Eliquis
Hypertension
PLAN:
Rotator cuff tear and rupture of long biceps tendon :
This is affecting acutely daily living as prior to that she was completely dependent and she was still driving.� Will admit the patient get an MRI of upper extremity involving the shoulder and elbow joint as well as arm to assess
Ortho has seen the patient.
Oral steroids can be considered with a PPI to avoid GI bleed.
Avoid NSAIDs because of Eliquis- bleeding risk
- Ortho has seen patient and suspects bleed from the tear, patient will be going to IR for further evaluation
- Stopping Eliquis 72 hours before surgery
- adding PO Oxycodone q6, continue IV morphine
- Bowel regimen- Miralax
- talked to the ortho team and they would want patient to follow up outpatient.
- If patient decides on surgery then we would hold Eliquis, if not then we would resume Eliquis.
Biopsy US : IMPRESSION: Ultrasound-guided aspiration right biceps tendon sheath with minimal return of blood-tinged gelatinous fluid as above, sample sent for microbiology.
MRI of shoulder
1. � ACUTE COMPLETE INTRACAPSULAR RUPTURE of the LONG HEAD BICEPS TENDON with distal retraction of the torn tendon fibers 7 cm into the upper arm.
2. � Acute strain or severe tendinosis in the subscapularis tendon.
3. � FULL-THICKNESS INSERTIONAL TEAR of the SUPRASPINATUS TENDON.
4. � Moderate atrophy of the muscles of the right rotator cuff.
5. � Mild subacromial/subdeltoid bursitis.
Normovolemic Hyponatremia
- checking urine Na, urine osmolality, serum Na, serum osmolality
- urine sodium and serum sodium low- not likely SIADH
- repeat BMP in am
No evidence of infection or skin lesion of shingle even
Continue Eliquis for afib
Continue home medications
PT OT
Heat pad application
All discussed with the patient and the family
CODE STATUS full code
DVT prophylaxis Eliquis
Anticipated Discharge: Within 24 hours
Subjective/Interval History
-
Date of Service: June 30, 2023
Patient reports of no pain this morning.
Objective Data
-
Labs:
Laboratory Results
06/30/23
07:15
WBC Pending
Hgb Pending
Hct Pending
Plt Count Pending
Sodium Pending
Potassium Pending
Chloride Pending
Carbon Dioxide Pending
BUN Pending
Creatinine Pending
Glucose Pending
Calcium Pending
Vital Signs:
Vital Signs
Temp Pulse Resp BP Pulse Ox
97.6 F 73 18 126/71 95
06/30/23 03:35 06/30/23 03:35 06/30/23 03:35 06/30/23 03:35 06/30/23 03:35
I&O
06/29/23 06/30/23 07/01/23
06:59 06:59 06:59
Intake Total 240 / 240 520 / 520
Output Total 400 / 400
Balance 240 / 240 120 / 120
Review of Systems
-
History Source: Patient
All other systems: Reviewed and negative (except mentioned )
Musculoskeletal: Reports Muscle Weakness
Psych: Reports Anxious
Physical Exam
-
General: Well Developed
HEENT: Normocephalic and Atraumatic
Respiratory: Clear to Auscultation
Cardiac: Regular Rhythm and S1/S2
Musculoskeletal: Other (limited ROM in right shoulder and arm , sling placed )
Neuro: Awake and Alert
Psych: Anxious
Data Reviewed
-
Labs: Labs Reviewed by me and Discussed with Physician
[2023-06-30 07:41] LABS: % Basophils 0.1 % (0-2); % Eosinophils 0.1 % (0-6); % Immature Granulocytes 0.4 % (0-0.5); % Lymphocytes 9.9 % (20.5-51.1); % Monocytes 8.3 % (1.7-9.3); % Neutrophils 81.2 % (42.2-75.2); Absolute Monocytes 0.9 10^3/uL (0.1-0.6); Absolute Neutrophils 8.3 10^3/uL (1.4-6.5); Hemoglobin 14.2 g/dL (12.0-16.0); Mean Corp Hgb Conc. 34.6 g/dL (33.0-37.0); Mean Corpuscular Hgb 31.3 pg (27.0-31.0); Mean Corpuscular Volume 90.5 fL (81.0-99.0); Mean Platelet Volume 9.9 fL (7.4-10.4); Nucleated Red Blood Cells % 0 %; Platelet Count 142 10^3/uL (130-400); Red Blood Cell Count 4.53 10^6/uL (4.20-5.40); White Blood Cell Count 10.2 10^3/uL (4.8-10.8)
[2023-06-30 08:00] LABS: Blood Urea Nitrogen 28 mg/dl (7-17); Carbon Dioxide 29 mmol/L (22-30); Chloride 98 mmol/L (98-107); Estimated Creatinine Clearance 57 ml/min; Glucose 107 mg/dl (70-99); Potassium 4.1 mmol/L (3.5-5.1); Sodium 132 mmol/L (135-145); eGFR > 60.00
[2023-06-30] MEDS: LIDOCAINE 4% PATCH 1 PATCH TOPICAL (08:51)
[2023-06-30] MEDS: CARDIZEM CD 120 MG PO (08:52)
[2023-06-30] MEDS: TIKOSYN 250 MCG PO ×2 (08:52→20:42)
[2023-06-30] MEDS: DELTASONE 40 MG PO (08:52)
[2023-06-30] MEDS: LASIX 40 MG PO (08:52)
[2023-06-30] MEDS: PROTONIX 40 MG PO (08:52)
[2023-06-30] MEDS: MIRALAX PO (08:54)
--- NOTE | 2023-06-30 09:18 | W.PN.UPDATE ---
Update Note
Progress Note Update
Patient was seen this morning on a.m. rounds. She reports slow improvement of her symptoms. She is pending cultures from ultrasound-guided aspiration of her bicep tendon sheath yesterday with small amount collected and mostly bloody.
-Discussed with the patient primary reason is to rule out infection with fluid seen on her imaging previously
-We discussed with the more likely orthopedic injury/degeneration of her right upper extremity relative to her rotator cuff and bicep tendon this is more mechanical in nature rather than infectious.
-Recommend PT/OT and discharge planning for consideration of skilled unit if necessary; recommend outpatient orthopedic follow-up for consideration in the future of operative intervention if necessary pending negative cultures
--- NOTE | 2023-06-30 09:26 | W.PN.UPDATE ---
Update Note
Progress Note Update
Pt seen and examined.
Agree with PA assessment and plan
Improving with rest, prednisone and aspiration
await culture results, do not anticipate an infection
She does have a rotator cuff tear, and if she remains symptomatic, we will recommend outpatient shoulder arthroscopy.
She could be seen in the office on Monday and potentially scheduled for repair on Monday.
--- NOTE | 2023-06-30 10:53 | CM ---
Addendum entered by Charlene Harrison 06/30/23 15:44:
Auth began in [employer]
Pending Reference # [id number]
Clinicals faxed to [phone]
Addendum entered by Charlene Harrison 06/30/23 14:45:
Pt medically ready for d/c
[facility] can accept Monday
[facility] will review
[facility] - unable to accept
Spoke with pts jimmy Ray
Reports family is not prepared to assist pt at this time if d/c'ed to home
Informed [facility] will have bed Monday - family's first choice
Called and spoke to Soledad [phone] at [facility] - can accept Monday
Will start auth
Plan - [facility] on 07/02/2023
Contact [facility] rubber compounder supervisor Monday [phone]
Report - [phone]
Fax - [phone]
Family can transport pt to facility
Original Note:
Received call from pts daughter Flor
Requesting mother go to rehab at d/c - informed PT/OT recs for snf
Choices given - [facility], [facility] and [facility]
Referred in [facility] - pt accepted at [facility] pending bed availability
Plan - d/c to snf when medically stable - tbd
Will needs auth
[2023-06-30] MEDS: LUVOX 50 MG PO (20:42)
[2023-07-01 03:35] VITALS: BP 121/66
[2023-07-01 06:00] VITALS: BMI 25.4
[2023-07-01 07:00] VITALS: BP 121/70
[2023-07-01 07:30] LABS: Blood Urea Nitrogen 28 mg/dl (7-17); Calcium 8.9 mg/dl (8.4-10.2); Carbon Dioxide 28 mmol/L (22-30); Chloride 98 mmol/L (98-107); Estimated Creatinine Clearance 57 ml/min; Glucose 99 mg/dl (70-99); Potassium 4.1 mmol/L (3.5-5.1); Sodium 132 mmol/L (135-145); eGFR > 60.00
[2023-07-01] MEDS: LIDOCAINE 4% PATCH 1 PATCH TOPICAL (08:42)
[2023-07-01] MEDS: CARDIZEM CD 120 MG PO (08:42)
[2023-07-01] MEDS: MIRALAX 17 GRAMS PO (08:42)
[2023-07-01] MEDS: LASIX 40 MG PO (08:42)
[2023-07-01] MEDS: TIKOSYN 250 MCG PO ×2 (08:42→20:23)
[2023-07-01] MEDS: DELTASONE 40 MG PO (08:43)
[2023-07-01] MEDS: PROTONIX 40 MG PO (08:43)
--- NOTE | 2023-07-01 10:18 | W.PN.UPDATE ---
Update Note
Progress Note Update
- 83-year-old female admitted for significant right shoulder pain following an injection.
- Cultures show no growth.
- She reports a 'miracle' has occurred and she is now able to lift her right shoulder more than she has for the past several days. Reports pain is well-controlled.
- ROM with FE to 120 degrees, ER to 30 degrees without pain. Full ROM elbow/wrist/hand without pain. NTTP over biceps tendon and cuff insertion. No erythema or warmth.
- Current plan is to be discharged to [facility] and follow-up with Dr. Mitchell on an outpatient basis.
- Based on her current symptoms, unlikely that she will require surgical intervention, so recommend that she contact the office on Monday to schedule a follow-up appointment for sometime next week.
- May work with PT/OT to tolerance. May do ADLs as tolerated.
-Will sign off on her for now from an orthopedic standpoint and plan to follow-up with her on an outpatient basis for further treatment recommendations going forward.
[2023-07-01 11:00] VITALS: BP 134/69
[2023-07-01] MEDS: ELIQUIS 5 MG PO ×2 (12:39→20:23)
--- NOTE | 2023-07-01 12:49 | W.PN.HOSP.TC ---
Today's Communication/Plan
-
Monitor vital signs and see plan
Monitor sodium
Pain control
Discharge to SNF when able
Restart Eliquis
Assessment / Plan
Assessment / Plan
Biopsy US : IMPRESSION: Ultrasound-guided aspiration right biceps tendon sheath with minimal return of blood-tinged gelatinous fluid as above, sample sent for microbiology.
MRI of shoulder
1. � ACUTE COMPLETE INTRACAPSULAR RUPTURE of the LONG HEAD BICEPS TENDON with distal retraction of the torn tendon fibers 7 cm into the upper arm.
2. � Acute strain or severe tendinosis in the subscapularis tendon.
3. � FULL-THICKNESS INSERTIONAL TEAR of the SUPRASPINATUS TENDON.
4. � Moderate atrophy of the muscles of the right rotator cuff.
5. � Mild subacromial/subdeltoid bursitis.
IMPRESSION:
83-year-old female who has been in independent living and driving up to 10 days ago when she experienced sudden severe pain in the right shoulder, she got worse after injection by orthopedic 4 days ago as an outpatient. MRI confirmed rotator cuff
tear and rupture of long biceps tendon.
Rotator cuff tear and rupture of long biceps tendon
Normovolemic Hyponatremia
GERD
cervical radiculopathy
Limitation of movement because of the pain in the right arm
A-fib anticoagulated with Eliquis
Hypertension
Asymptomatic bacteriuria
PLAN:
Rotator cuff tear and rupture of long biceps tendon :
This is affecting acutely daily living as prior to that she was completely dependent and she was still driving.� MRI with acute complete intracapsular rupture of the long head biceps tendon, full-thickness insertional tear of the supraspinatus
tendon. Patient seen by orthopedics and recommended to follow-up with them outpatient.
Recent orthopedics recommendation patient likely will not require surgery. Will resume Eliquis.
Ortho following, patient will follow-up with Dr. Mitchell outpatient
Oral steroids can be considered with a PPI to avoid GI bleed.
Avoid NSAIDs because of Eliquis- bleeding risk
- pain control
- Bowel regimen- Miralax
- talked to the ortho team and they would want patient to follow up outpatient.
- If patient decides on surgery then we would hold Eliquis, if not then we would resume Eliquis.
Last to prednisone 07/01
Hold off on antibiotics for asymptomatic bacteriuria
Normovolemic Hyponatremia
- checking urine Na, urine osmolality, serum Na, serum osmolality
- urine sodium and serum sodium low- not likely SIADH
- monitor
No evidence of infection or skin lesion of shingle even
Continue Eliquis for afib
Continue home medications
PT OT
Heat pad application
All discussed with the patient and the family
CODE STATUS full code
DVT prophylaxis Eliquis
General: Well Developed
HEENT: Normocephalic and Atraumatic
Respiratory: Clear to Auscultation
Cardiac: Regular Rhythm and S1/S2
Musculoskeletal: limited ROM in right shoulder and arm , sling placed
Neuro: Awake and Alert
Psych: Anxious
I spent a total of 52 minutes with the patient or on the floor. More than 50% of this time involved counseling and coordination of care.
Anticipated Discharge: Within 24 hours
Subjective/Interval History
-
Date of Service: July 01, 2023
has some pain
Objective Data
-
Labs:
Laboratory Results
07/01/23
05:38
Sodium 132 L
Potassium 4.1
Chloride 98
Carbon Dioxide 28
BUN 28 H
Creatinine 0.6
Glucose 99
Calcium 8.9
Vital Signs:
Vital Signs
Temp Pulse Resp BP Pulse Ox
97.7 F 77 18 134/69 96
07/01/23 11:00 07/01/23 11:00 07/01/23 11:00 07/01/23 11:00 07/01/23 11:00
I&O
06/30/23 07/01/23 07/02/23
06:59 06:59 06:59
Intake Total 520 / 520 840 / 840
Output Total 400 / 400
Balance 120 / 120 840 / 840
[2023-07-01 15:00] VITALS: BP 127/61
[2023-07-01 19:30] VITALS: BP 142/77
[2023-07-01] MEDS: LUVOX 50 MG PO (20:23)
[2023-07-01 23:13] VITALS: BP 115/64
[2023-07-02 03:28] VITALS: BP 115/63
[2023-07-02 05:26] VITALS: BMI 25.6
[2023-07-02 07:00] VITALS: BP 131/72
[2023-07-02 08:08] LABS: Blood Urea Nitrogen 25 mg/dl (7-17); Calcium 8.7 mg/dl (8.4-10.2); Carbon Dioxide 25 mmol/L (22-30); Chloride 99 mmol/L (98-107); Estimated Creatinine Clearance 57 ml/min; Glucose 94 mg/dl (70-99); Potassium 3.9 mmol/L (3.5-5.1); Sodium 133 mmol/L (135-145); eGFR > 60.00
[2023-07-02] MEDS: LIDOCAINE 4% PATCH 1 PATCH TOPICAL (08:32)
[2023-07-02] MEDS: MIRALAX 17 GRAMS PO (08:32)
[2023-07-02] MEDS: PROTONIX 40 MG PO (08:33)
[2023-07-02] MEDS: LASIX 40 MG PO (08:33)
[2023-07-02] MEDS: CARDIZEM CD 120 MG PO (08:33)
[2023-07-02] MEDS: ELIQUIS 5 MG PO (08:35)
[2023-07-02] MEDS: TIKOSYN 250 MCG PO (08:35)
--- NOTE | 2023-07-02 10:14 | CM ---
Addendum entered by TAVARES Miller 07/02/23 13:33:
Patient's daughter, Flor called and was updated. She stated that her son will transport home. Updated Industrial Psychologist and requested that transportation be cancelled.
Addendum entered by TAVARES Miller 07/02/23 11:13:
Medical necessity and transfer sheet completed and provided to [employer] community services officer who will arrange for transfer.
Original Note:
Received authorization from [employer] for 15 days, start date-06/25/2023 NRD 07/09/23. Authorization number, [id number]. Placed a call to [facility] to update. Spoke with Alesia who stated that she can accept patient after 15:00 would be
preferable. Provided auth number to her. Will update RN and salvage clerk on . # For report and fax# in previous CM note.
Plan: Case management will continue to follow and assist with discharge planning. Patient received authorization to go to [facility] today
[2023-07-02 11:00] VITALS: BP 126/66
--- NOTE | 2023-07-02 11:07 | W.PN.HOSP.TC ---
Today's Communication/Plan
-
Monitor vital signs see plan
Pain control
Eliquis restarted
Patient to follow with orthopedics outpatient
Discharge today
Time of discharge 37 minutes
Assessment / Plan
Assessment / Plan
Biopsy US : IMPRESSION: Ultrasound-guided aspiration right biceps tendon sheath with minimal return of blood-tinged gelatinous fluid as above, sample sent for microbiology.
MRI of shoulder
1. � ACUTE COMPLETE INTRACAPSULAR RUPTURE of the LONG HEAD BICEPS TENDON with distal retraction of the torn tendon fibers 7 cm into the upper arm.
2. � Acute strain or severe tendinosis in the subscapularis tendon.
3. � FULL-THICKNESS INSERTIONAL TEAR of the SUPRASPINATUS TENDON.
4. � Moderate atrophy of the muscles of the right rotator cuff.
5. � Mild subacromial/subdeltoid bursitis.
IMPRESSION:
83-year-old female who has been in independent living and driving up to 10 days ago when she experienced sudden severe pain in the right shoulder, she got worse after injection by orthopedic 4 days ago as an outpatient. MRI confirmed rotator cuff
tear and rupture of long biceps tendon.
Rotator cuff tear and rupture of long biceps tendon
Normovolemic Hyponatremia
GERD
cervical radiculopathy
Limitation of movement because of the pain in the right arm
A-fib anticoagulated with Eliquis
Hypertension
Asymptomatic bacteriuria
PLAN:
Rotator cuff tear and rupture of long biceps tendon :
This is affecting acutely daily living as prior to that she was completely dependent and she was still driving.� MRI with acute complete intracapsular rupture of the long head biceps tendon, full-thickness insertional tear of the supraspinatus
tendon. Patient seen by orthopedics and recommended to follow-up with them outpatient.
Recent orthopedics recommendation patient likely will not require surgery. Eliquis resumed
Ortho following, patient will follow-up with Dr. Mitchell outpatient
Oral steroids can be considered with a PPI to avoid GI bleed.
Avoid NSAIDs because of Eliquis- bleeding risk
- pain control
- Bowel regimen- Miralax
- talked to the ortho team and they would want patient to follow up outpatient.
- If patient decides on surgery then we would hold Eliquis, if not then we would resume Eliquis.
Last to prednisone 07/01
Hold off on antibiotics for asymptomatic bacteriuria
Normovolemic Hyponatremia
- checking urine Na, urine osmolality, serum Na, serum osmolality
- urine sodium and serum sodium low- not likely SIADH
- monitor
No evidence of infection or skin lesion of shingle even
Continue Eliquis for afib
Continue home medications
PT OT
Heat pad application
All discussed with the patient and the family
CODE STATUS full code
DVT prophylaxis Eliquis
General: Well Developed
HEENT: Normocephalic and Atraumatic
Respiratory: Clear to Auscultation
Cardiac: Regular Rhythm and S1/S2
Musculoskeletal: limited ROM in right shoulder and arm , sling placed
Neuro: Awake and Alert
Psych: Anxious
Anticipated Discharge: Today
Subjective/Interval History
-
Date of Service: July 02, 2023
denies pain
Objective Data
-
Labs:
Laboratory Results
07/02/23
05:23
Sodium 133 L
Potassium 3.9
Chloride 99
Carbon Dioxide 25
BUN 25 H
Creatinine 0.6
Glucose 94
Calcium 8.7
Vital Signs:
Vital Signs
Temp Pulse Resp BP Pulse Ox
97.8 F 72 16 131/72 95
07/02/23 07:00 07/02/23 07:00 07/02/23 07:00 07/02/23 07:00 07/02/23 07:00
I&O
07/01/23 07/02/23 07/03/23
06:59 06:59 06:59
Intake Total 840 / 840 860 / 860 240 / 240
Balance 840 / 840 860 / 860 240 / 240
--- NOTE | 2023-07-02 11:11 | W.DCSUMMARY ---
Discharge Summary
Discharge Data
Date of Admission: 06/27/23
Date of Discharge: 07/02/23
-
Pending Results: No
Hospital Course
83-year-old female with past medical history of hypertension, hyperlipidemia, A-fib, GERD came to the hospital with sudden severe pain in the right shoulder. Patient had an injection few days ago on her shoulder outpatient. MRI was done which
showed rotator cuff tear and rupture of the long biceps tendon. Patient was seen by orthopedics throughout hospitalization. Initially patient Eliquis was held which was later resumed prior to discharge. Patient was instructed by orthopedics to
follow-up with them closely outpatient to see any further need for surgery. Patient instructed to manage her injury currently with conservative measures. Patient was initially started on prednisone and she finished her course of prednisone on
07/02/2023. Patient was evaluated by physical therapy who recommended SNF. Patient also had hyponatremia which over time was improving. She also had asymptomatic bacteriuria which was not treated. Once patient symptoms were improving, she was
then discharged to SNF with instructions to follow-up closely with all her physicians outpatient.
Discharge Plan
-
Patient Disposition: Long Term/SNF
Discharge Diagnosis/Procedures: Right shoulder rotator cuff tear, rupture long head biceps with hematoma secondary to Eliquis
Ambulatory dysfunction
Hyponatremia
Diet: As tolerated
Activity: As tolerated
Additional Activity: Sling for comfort
Bathing Restrictions: OK to Shower
Activity Restrictions/Additional Instructions:
Sling for comfort
Ice as needed
Follow up Monday or monday with Dr Mitchell
Call for appointment [phone]
Referrals:
Garret Mitcehll MD [Active] - in two to three days
Albert Richard MD [Family Provider] - in less than 1 week
Prescriptions:
New
oxycodone 5 mg Tablet
5 mg PO Q6HPRN PRN (Reason: moderate to severe pain) Qty: 12 0RF
Continued
therapeutic multivitamin Tablet
1 tab PO DAILY
Eliquis 5 mg Tablet
5 mg PO BID Qty: 6 0RF
furosemide 40 mg Tablet
40 mg PO DAILY 30 Days Qty: 30 0RF
dofetilide 250 mcg Capsule
250 mcg PO Q12H 30 Days Qty: 60 0RF
diltiazem HCl 120 mg tablet
120 mg PO DAILY
fluvoxamine 50 mg tablet
50 mg PO HS
Discontinued
tramadol 50 mg tablet
50 mg PO Q6H PRN (Reason: moderate pain)
Patient Comments:
06/25/2023: family states made pt whoozy and did not help with pain relief
Discharge Orders:
Discharge Patient (As Directed); Ordered 07/02/23
Ordered By: Usman Duran
Discharge Date and Time
Discharge Date/Time: 07/02/23 18:10
[2023-07-02 15:00] VITALS: BP 114/63
== END 2023-07-02 18:10 | DRG 563 ==
LOC: 3 WEST ACU 14:27
PROVIDERS: Family Medicine; Radiology Vascular & Interventional Radiology; Student in an Organized Health Care Education/Training Program; ADMITTING PHYSICIAN Internal Medicine; ATTENDING PHYSICIAN Internal Medicine; CONSULT PHYSICIAN Orthopaedic Surgery; EMERGENCY PHYSICIAN Student in an Organized Health Care Education/Training Program; FAMILY PHYSICIAN Internal Medicine Geriatric Medicine
PROC: 0R9J3ZX Drainage of Right Shoulder Joint, Percutaneous Approach, Diagnostic (ICD-10-PCS; 2023-06-29)
DX: S46.011A Strain of muscle(s) and tendon(s) of the rotator cuff of right shoulder, initial encounter (principal); E22.2 Syndrome of inappropriate secretion of antidiuretic hormone; I50.9 Heart failure, unspecified; I11.0 Hypertensive heart disease with heart failure; Z79.01 Long term (current) use of anticoagulants; I48.91 Unspecified atrial fibrillation; M54.12 Radiculopathy, cervical region; K21.9 Gastro-esophageal reflux disease without esophagitis
CPT/HCPCS: 20610; 73221; 76942; 80048; 80053; 81003; 81015; 83930; 83935; 84295; 84300; 85025; 85027; 87015; 87070; 87086; 87088; 87186; 87205; 96372; 97116; 97167; 97530; 97535; 99285

== ENCOUNTER → 2023-07-05 12:02 | Outpatient (REF) | payer OTHER, SELFPAY ==
[2023-07-05 13:12] LABS: % Basophils 0.2 % (0-2); % Eosinophils 2.7 % (0-6); % Immature Granulocytes 0.3 % (0-0.5); % Lymphocytes 16.8 % (20.5-51.1); % Monocytes 9.7 % (1.7-9.3); % Neutrophils 70.3 % (42.2-75.2); Absolute Eosinophils 0.2 10^3/uL (0-0.7); Absolute Lymphocytes 1.1 10^3/uL (1.2-3.4); Absolute Monocytes 0.6 10^3/uL (0.1-0.6); Absolute Neutrophils 4.5 10^3/uL (1.4-6.5); Hematocrit 43.5 % (37.0-47.0); Hemoglobin 14.7 g/dL (12.0-16.0); Mean Corp Hgb Conc. 33.8 g/dL (33.0-37.0); Mean Corpuscular Hgb 31.1 pg (27.0-31.0); Mean Platelet Volume 10.2 fL (7.4-10.4); Nucleated Red Blood Cells % 0 %; Platelet Count 131 10^3/uL (130-400); Red Blood Cell Count 4.73 10^6/uL (4.20-5.40); Red Cell Dist. Width 13.2 % (11.5-14.5); White Blood Cell Count 6.4 10^3/uL (4.8-10.8)
[2023-07-05 13:19] LABS: Blood Urea Nitrogen 27 mg/dl (7-17); Calcium 8.7 mg/dl (8.4-10.2); Carbon Dioxide 27 mmol/L (22-30); Chloride 99 mmol/L (98-107); Glucose 83 mg/dl (70-99); Potassium 3.8 mmol/L (3.5-5.1); Sodium 131 mmol/L (135-145); eGFR > 60.00
== END ==
LOC: OLABPG 12:02
PROVIDERS: ATTENDING PHYSICIAN Family Medicine
DX: I48.0 Paroxysmal atrial fibrillation (principal)
CPT/HCPCS: 36415; 80048; 85025

== ENCOUNTER → 2023-07-20 10:35 | Outpatient (REF) | payer OTHER, SELFPAY | LOC: HWRAD 10:35 | PROVIDERS: ATTENDING PHYSICIAN Internal Medicine Cardiovascular Disease; FAMILY PHYSICIAN Internal Medicine Geriatric Medicine | DX: I50.32 Chronic diastolic (congestive) heart failure (principal); J90 Pleural effusion, not elsewhere classified | CPT/HCPCS: 71046 ==

== ENCOUNTER → 2023-07-24 08:47 | Outpatient (REF) | payer OTHER, SELFPAY ==
[2023-07-24 09:35] VITALS: BP 114/76; BP_SYST 82
[2023-07-24 10:00] VITALS: BP 119/65; BP_SYST 69
[2023-07-24 10:26] VITALS: BP 123/63
[2023-07-24 10:42] LABS: Body Fluid pH 7.48
[2023-07-24 10:54] LABS: Body Fluid Glucose 86 mg/dl; Body Fluid LDH 193 U/L; Body Fluid Protein 4.3 g/dl
[2023-07-24 11:04] LABS: Body Fluid Mononuclear 95.4 %; Body Fluid Polymorphonuclear 4.6 %; Body Fluid WBC 176 /CUMM
[2023-07-24 11:16] LABS: Body Fluid Second Tech EM
== END ==
LOC: RADI 08:47
PROVIDERS: ATTENDING PHYSICIAN Internal Medicine Cardiovascular Disease; FAMILY PHYSICIAN Internal Medicine Geriatric Medicine
DX: J90 Pleural effusion, not elsewhere classified (principal); R06.02 Shortness of breath
CPT/HCPCS: 88305; 32555; 71045; 71270; 74178; 82945; 83615; 83986; 84157; 87015; 87070; 87116; 87205; 88112; 88341; 88342; 89051; Q9967

== ENCOUNTER 2023-07-31 07:56 | Emergency (ER) | payer OTHER, SELFPAY ==
[2023-07-31 08:07] VITALS: BP 113/67
[2023-07-31 09:15] VITALS: BMI 23.8
[2023-07-31 09:19] VITALS: BP 119/62
[2023-07-31 09:42] LABS: % Basophils 0.5 % (0-2); % Eosinophils 0.2 % (0-6); % Immature Granulocytes 0.5 % (0-0.5); % Lymphocytes 7.2 % (20.5-51.1); % Monocytes 8.4 % (1.7-9.3); % Neutrophils 83.2 % (42.2-75.2); Absolute Basophils 0.1 10^3/uL (0-0.2); Absolute Immature Granulocytes 0.1 10^3/uL (0-0.05); Absolute Lymphocytes 0.8 10^3/uL (1.2-3.4); Absolute Monocytes 0.9 10^3/uL (0.1-0.6); Absolute Neutrophils 9.2 10^3/uL (1.4-6.5); Hematocrit 45.3 % (37.0-47.0); Hemoglobin 15.5 g/dL (12.0-16.0); Mean Corp Hgb Conc. 34.2 g/dL (33.0-37.0); Mean Corpuscular Hgb 31.5 pg (27.0-31.0); Mean Corpuscular Volume 92.1 fL (81.0-99.0); Mean Platelet Volume 8.9 fL (7.4-10.4); Nucleated Red Blood Cells % 0 %; Platelet Count 192 10^3/uL (130-400); Red Blood Cell Count 4.92 10^6/uL (4.20-5.40); Red Cell Dist. Width 13.4 % (11.5-14.5)
[2023-07-31 09:53] LABS: ALT (SGPT) 43 U/L (0-35); AST (SGOT) 50 U/L (14-36); Albumin 4.2 g/dl (3.5-5.0); Alkaline Phosphatase 102 U/L (38-126); Blood Urea Nitrogen 12 mg/dl (7-17); Calcium 9.6 mg/dl (8.4-10.2); Carbon Dioxide 25 mmol/L (22-30); Chloride 102 mmol/L (98-107); Estimated Creatinine Clearance 57 ml/min; Glucose 105 mg/dl (70-99); Potassium 4.4 mmol/L (3.5-5.1); Sodium 134 mmol/L (135-145); Total Bilirubin 1.3 mg/dl (0.2-1.3); Total Protein 7.4 g/dl (6.3-8.2); eGFR > 60.00
[2023-07-31 10:00] VITALS: BP 105/57
--- NOTE | 2023-07-31 10:12 | ED.GENMED ---
History of Present Illness
General
Chief Complaint: Headache
Source: patient and family
Time Seen by Provider: 07/31/23 09:10
Travel History
Have you had any contact with someone who has COVID-19?: No
Do you have any symptoms of coronavirus? Fever > 100 degrees, chills, cough, shortness of breath, sore throat, loss of taste or smell, muscle aches, or headache?: No
History of Present Illness
History of Present Illness:
83-year-old female who presents with pain in the base of her skull at her neck. It hurts to move her head. Hurts to rotate her neck or flex at her neck. She states she woke up this way. She denies radiating pain or symptoms into her upper
extremities. No numbness or tingling chest pain. No fevers. No fall. No trauma.
Past History
Past History
ED Past Medical History: Arrthythmia (Atrial fibrillation, anticoagulated), CHF, HTN, Hypercholesterolemia and Other (Hearing impaired)
ED Past Surgical History: Other
Patient has exhibited threatening behavior?: No
PSI?: No
Social History
Tobacco: Non-smoker
Alcohol: None
Drug: None
Personal: Other
Living: alone
Employment: Retired
Family History
Family History: Other
Phy Exam
Physical Exam
Physical Exam:
CONSTITUTIONAL Patient alert and oriented to person, place and time. Well-appearing. Vital signs reviewed.
HEAD atraumatic, normocephalic.
EYES eyelids normal to inspection, Extraocular muscles intact, Conjunctiva normal, Sclera normal.
NECK slightly limited range of motion due to pain. Tenderness clearly at the insertion of the paracervical musculature at the occiput..
RESPIRATORY CHEST No respiratory distress noted, Chest expansion equal
BACK normal inspection, no obvious deformities
UPPER EXTREMITY range of motion normal, Motor strength normal, no cyanosis, no edema.
LOWER EXTREMITY range of motion normal, Motor strength normal, no cyanosis, no edema.
NEURO Speech normal, No focal motor deficits, N[place] coma scale 15, Memory normal, Cranial Nerves intact to screening exam.
SKIN skin warm, dry, and normal in color.
PSYCHIATRIC patient oriented to person place and time, Normal affect.
Course
Orders/Labs/Results
Orders:
Orders
07/31/23 09:[address] [CT Head W/o Iv Contrast] Urgent
Comment:
Reason For Exam: POSTERIOR HEADACHE
07/31/23 09:31
CMP [Comprehensive Metabolic Panel] Urgent
Complete Blood Count/With Diff Urgent
07/31/23 10:11
Acetaminophen [Tylenol] 1,000 mg PO NOW STA
diazePAM [Valium Injection] 2 mg IV NOW STA
Abnormal Lab Results
07/31/23
09:31
WBC 11.0 H 10^3/uL
(4.8-10.8)
MCH 31.5 H pg
(27.0-31.0)
Abs Immat Gran (auto) 0.1 H 10^3/uL
(0-0.05)
Absolute Neuts (auto) 9.2 H 10^3/uL
(1.4-6.5)
Absolute Lymphs (auto) 0.8 L 10^3/uL
(1.2-3.4)
Absolute Monos (auto) 0.9 H 10^3/uL
(0.1-0.6)
Neutrophils % 83.2 H %
(42.2-75.2)
Lymphocytes % 7.2 L %
(20.5-51.1)
Sodium 134 L mmol/L
(135-145)
Creatinine 0.5 L mg/dL
(0.6-1.0)
Glucose 105 H mg/dl
(70-99)
AST 50 H U/L
(14-36)
ALT 43 H U/L
(0-35)
07/31/23 09:31
07/31/23 09:31
Vital Signs
Initial and Last Documented VS:
Initial Vital Signs
Temp Pulse Resp BP Pulse Ox
98.0 F 86 16 113/67 98
07/31/23 08:07 07/31/23 08:07 07/31/23 08:07 07/31/23 08:07 07/31/23 08:07
Last Documented Vital Signs
Temp Pulse Resp BP Pulse Ox
98.0 F 66 21 104/57 97
07/31/23 08:07 07/31/23 11:30 07/31/23 11:30 07/31/23 11:00 07/31/23 11:30
MDM/Problems Addressed
MDM/Problems Addressed:
Cervical musculature spasm
*Radiology
Radiology exam reviewed: preliminary read by ED provider (No obvious intracranial hemorrhage)
*Pulse Oximetry
Patient hypoxic: no
*Critical Care Note
Total Time (30-74mins, 75-104mins- exclusive of procedures): Not Applicable
Data Reviewed
Source: patient
Further Testing Considered But Not Given:
Consider CT C-spine imaging but no injury. Clearly muscular in nature
Patient Management
Escalation/DeEscalation of care consider admission/obs:
Mild improvement. CT negative. Neuroexam normal. Okay for discharge. Tylenol, rest, warm compresses and Valium as needed
ED Attending Note
-
Portions of this chart may have been created with voice recognition software.� Occasional wrong word or��sound alike� substitutions may have occurred due to the inherent limitations of voice recognition software.
Discharge Plan
Departure
Patient Disposition: Home (Routine Discharge)
Date of Disposition: 07/31/23
Time of Disposition: 12:10
Patient with high blood pressure during this ER visit?: No
Discharge Problem:
Cervical paraspinal muscle spasm
Instructions: Muscle Spasms (DC)
Prescriptions:
New
diazepam 2 mg tablet
2 mg PO TID PRN (Reason: muscle spasm) Qty: 10 0RF
No Action
therapeutic multivitamin Tablet
1 tab PO DAILY
Eliquis 5 mg Tablet
5 mg PO BID Qty: 6 0RF
furosemide 40 mg Tablet
40 mg PO DAILY 30 Days Qty: 30 0RF
dofetilide 250 mcg Capsule
250 mcg PO Q12H 30 Days Qty: 60 0RF
diltiazem HCl 120 mg tablet
120 mg PO DAILY
fluvoxamine 50 mg tablet
50 mg PO HS
oxycodone 5 mg Tablet
5 mg PO Q6HPRN PRN (Reason: moderate to severe pain) Qty: 12 0RF
Referrals:
Albert Richard MD [Family Provider] -
Activity Restrictions/Additional Instructions:
Please use warm compresses. Please use Tylenol for pain. Please rest. Return for numbness, tingling, worsening symptoms or any other concerns.
Interventions
Interventions:
*Risk Screen - Suicide Last Done: 07/31/23 09:18
*General Assessment Last Done: 07/31/23 09:18
*Neglect/Abuse Screening Last Done: 07/31/23 09:18
ED- Fall Risk Assessment Last Done: 07/31/23 09:18
*ED COVID-19 Vaccine History Last Done: 07/31/23 08:07
ED- Neurological Assessment Last Done: 07/31/23 09:18
Discharge Date and Time
Print Language: ARMENIAN
[2023-07-31] MEDS: VALIUM INJECTION 2 MG IV (10:28)
[2023-07-31] MEDS: TYLENOL 1000 MG PO (10:28)
[2023-07-31 11:00] VITALS: BP 104/57
[2023-07-31 12:00] VITALS: BP 102/56
== END 2023-07-31 13:03 | disposition home or self-care (01) ==
LOC: EMR 07:56
PROVIDERS: EMERGENCY PHYSICIAN Emergency Medicine; FAMILY PHYSICIAN Internal Medicine Geriatric Medicine
DX: M62.838 Other muscle spasm (principal)
CPT/HCPCS: 99284; 96374; 70450; 80053; 85025

== ENCOUNTER → 2023-08-24 17:06 | Outpatient (REF) | payer OTHER, SELFPAY | LOC: HWRAD 17:06 | PROVIDERS: ATTENDING PHYSICIAN Internal Medicine Cardiovascular Disease; FAMILY PHYSICIAN Internal Medicine Geriatric Medicine | DX: J90 Pleural effusion, not elsewhere classified (principal); R06.09 Other forms of dyspnea | CPT/HCPCS: 71046 ==

== ENCOUNTER → 2023-09-18 12:18 | Outpatient (REF) | payer OTHER, SELFPAY ==
[2023-09-18 13:00] VITALS: BP 146/79; BP_SYST 80
[2023-09-18 14:02] VITALS: BP 132/69; BP_SYST 74
[2023-09-18 14:41] VITALS: BP 128/67
[2023-09-18 14:57] LABS: Body Fluid Glucose 83 mg/dl; Body Fluid LDH 289 U/L; Body Fluid Protein 4.7 g/dl
[2023-09-18 15:15] LABS: Body Fluid Mononuclear 98.7 %; Body Fluid Polymorphonuclear 1.3 %; Body Fluid WBC 1447 /CUMM
[2023-09-18 15:31] LABS: Body Fluid Second Tech FB
== END ==
LOC: RADI 12:18
PROVIDERS: ATTENDING PHYSICIAN Internal Medicine Cardiovascular Disease; FAMILY PHYSICIAN Internal Medicine Geriatric Medicine
DX: J90 Pleural effusion, not elsewhere classified (principal)
CPT/HCPCS: 88305; 32555; 71045; 82945; 83615; 84157; 87015; 87070; 87205; 88112; 88341; 88342; 89051

== ENCOUNTER → 2023-10-18 10:06 | Outpatient (REF) | payer OTHER, SELFPAY | LOC: HWRAD 10:06 | PROVIDERS: ATTENDING PHYSICIAN Internal Medicine Geriatric Medicine | DX: R79.89 Other specified abnormal findings of blood chemistry (principal) | CPT/HCPCS: 76700 ==

== ENCOUNTER → 2023-10-31 12:17 | Outpatient (REF) | payer OTHER, SELFPAY | LOC: HWRAD 12:17 | PROVIDERS: ATTENDING PHYSICIAN Nurse Practitioner Adult Health; FAMILY PHYSICIAN Internal Medicine Geriatric Medicine | DX: J90 Pleural effusion, not elsewhere classified (principal) | CPT/HCPCS: 71046 ==

== ENCOUNTER → 2023-12-05 08:09 | Outpatient (REF) | payer OTHER, SELFPAY | LOC: PAVMRI 08:09 | PROVIDERS: ATTENDING PHYSICIAN Internal Medicine Geriatric Medicine | DX: R74.8 Abnormal levels of other serum enzymes (principal) | CPT/HCPCS: 74181 ==

== ENCOUNTER → 2024-01-02 13:26 | Outpatient (REF) | payer OTHER, SELFPAY | LOC: HWRCS 13:26 | PROVIDERS: ATTENDING PHYSICIAN Internal Medicine Geriatric Medicine | DX: I10 Essential (primary) hypertension (principal) | CPT/HCPCS: 93306 ==

== ENCOUNTER → 2024-01-22 12:20 | Outpatient (REF) | payer OTHER, SELFPAY | LOC: HWWDC 12:20 | PROVIDERS: ATTENDING PHYSICIAN Internal Medicine Geriatric Medicine | DX: Z12.31 Encounter for screening mammogram for malignant neoplasm of breast (principal) | CPT/HCPCS: 77063; 77067 ==

== ENCOUNTER → 2024-02-01 08:50 | Outpatient (REF) | payer OTHER, SELFPAY | LOC: WDC 08:50 | PROVIDERS: ATTENDING PHYSICIAN Internal Medicine Geriatric Medicine | DX: R92.8 Other abnormal and inconclusive findings on diagnostic imaging of breast (principal) | CPT/HCPCS: 76642 ==

== ENCOUNTER → 2024-02-02 10:11 | Outpatient (REF) | payer OTHER, SELFPAY | LOC: RAD 10:11 | PROVIDERS: ATTENDING PHYSICIAN Internal Medicine Geriatric Medicine; REFERRING PHYSICIAN Internal Medicine Cardiovascular Disease | DX: I10 Essential (primary) hypertension (principal); I48.0 Paroxysmal atrial fibrillation; E78.2 Mixed hyperlipidemia; I35.0 Nonrheumatic aortic (valve) stenosis; E55.9 Vitamin D deficiency, unspecified; R06.09 Other forms of dyspnea; M76.31 Iliotibial band syndrome, right leg; F43.21 Adjustment disorder with depressed mood; I50.30 Unspecified diastolic (congestive) heart failure; I25.10 Atherosclerotic heart disease of native coronary artery without angina pectoris; Z13.89 Encounter for screening for other disorder; M17.11 Unilateral primary osteoarthritis, right knee; R25.1 Tremor, unspecified; J90 Pleural effusion, not elsewhere classified; R74.8 Abnormal levels of other serum enzymes; K83.1 Obstruction of bile duct | CPT/HCPCS: 78803; A9538 ==

== ENCOUNTER → 2024-03-11 10:17 | Outpatient (REF) | payer OTHER, SELFPAY | LOC: HWRAD 10:17 | PROVIDERS: ATTENDING PHYSICIAN Internal Medicine Geriatric Medicine | DX: I10 Essential (primary) hypertension (principal); I48.0 Paroxysmal atrial fibrillation; E78.2 Mixed hyperlipidemia; I35.0 Nonrheumatic aortic (valve) stenosis; E55.9 Vitamin D deficiency, unspecified; R06.09 Other forms of dyspnea; M76.31 Iliotibial band syndrome, right leg; F43.21 Adjustment disorder with depressed mood; I50.30 Unspecified diastolic (congestive) heart failure; I25.10 Atherosclerotic heart disease of native coronary artery without angina pectoris; Z13.89 Encounter for screening for other disorder; M17.11 Unilateral primary osteoarthritis, right knee; R25.1 Tremor, unspecified; R74.8 Abnormal levels of other serum enzymes; K83.1 Obstruction of bile duct | CPT/HCPCS: 71046 ==

== ENCOUNTER → 2024-03-28 10:53 | Outpatient (REF) | payer OTHER, SELFPAY | LOC: HWRAD 10:53 | PROVIDERS: ATTENDING PHYSICIAN Internal Medicine Geriatric Medicine; REFERRING PHYSICIAN Internal Medicine Cardiovascular Disease | DX: J90 Pleural effusion, not elsewhere classified (principal) | CPT/HCPCS: 76604 ==

== ENCOUNTER 2024-05-30 15:42 | Observation (INO) | payer OTHER, SELFPAY ==
[2024-05-30] VITALS (9 sets, daily range): BP systolic 101–143; BP diastolic 56–85; BMI 21.6
[2024-05-30 12:30] LABS: % Basophils 0.8 % (0-2); % Eosinophils 0.3 % (0-6); % Immature Granulocytes 0.3 % (0-0.5); % Lymphocytes 12.5 % (20.5-51.1); % Monocytes 11.3 % (1.7-9.3); % Neutrophils 74.8 % (42.2-75.2); Absolute Basophils 0.1 10^3/uL (0-0.2); Absolute Lymphocytes 0.8 10^3/uL (1.2-3.4); Absolute Monocytes 0.7 10^3/uL (0.1-0.6); Absolute Neutrophils 4.5 10^3/uL (1.4-6.5); Hematocrit 40.8 % (37.0-47.0); Hemoglobin 13.4 g/dL (12.0-16.0); Mean Corp Hgb Conc. 32.8 g/dL (33.0-37.0); Mean Corpuscular Hgb 27.9 pg (27.0-31.0); Mean Platelet Volume 9.4 fL (7.4-10.4); Nucleated Red Blood Cells % 0 %; Platelet Count 183 10^3/uL (130-400); Red Cell Dist. Width 15.9 % (11.5-14.5)
[2024-05-30 12:41] LABS: D-Dimer 0.57 ug/mlFEU (0.00-0.50)
--- NOTE | 2024-05-30 12:49 | ED.GENMED ---
History of Present Illness
General
Chief Complaint: Breathing Problem
Source: patient and family
Exam Limitations: none
Time Seen by Provider: 05/30/24 11:12
History of Present Illness
History of Present Illness:
83-year-old female complaining of shortness of breath with exertion. This has been going on for probably 6 to 9 months. However progressive over the last few weeks. Woke up short of breath 2 nights ago. Short distances because this shortness of
breath. No chest pain although did describe a pressure in her chest this morning to the daughter. No pleuritic pain no fever
Past History
Past History
ED Past Medical History: Arrthythmia (Atrial fibrillation, anticoagulated), CHF, HTN, Hypercholesterolemia and Other (Hearing impaired)
ED Past Surgical History: Appendectomy, Cholecystectomy, Gynecological and Orthopedic
Patient has exhibited threatening behavior?: No
PSI?: No
Social History
Tobacco: Non-smoker
Alcohol: None
Drug: None
Personal: Other
Living: alone
Employment: Retired
Family History
Family History: Other
Phy Exam
Physical Exam
Physical Exam:
GENERAL: Alert and oriented in no apparent distress
EYE: Orbits normal.
NECK: Supple. No thyroid palpable
ENT: Pharynx without erythema
CARDIAC: Regular rate and rhythm without any obvious murmurs.
LUNGS: Clear breath sounds,normal
ABDOMEN: Soft, without focal tenderness or distention
NEUROLOGICAL: Alert and oriented , grossly non-focal
SKIN: Warm and dry, no rash or lesion, no discoloration, skin intact.
MUSCULOSKELETAL: No edema,no deformity.Good color
PSYCH: Normal and appropriate interaction.
Scores
Heart Failure Risk
Heart Failure Risk Score: Not Applicable
Course
Orders/Labs/Results
Orders:
Orders
05/30/24 10:34
Electrocardiogram (*1) Urgent
Reason for Study: Shortness of Breath
EKG- Treatment ONCE
05/30/24 11:21
Cardiac Monitoring- Treatment ONCE
IV Insert/Care/Rem.- Treatment PRN
CR Chest - 2 Views Urgent
Comment:
Reason For Exam: Short of breath with exertion
Pulse Ox/cont/shift [RESP] Stat
Quantity: 1
05/30/24 12:21
D-Dimer Urgent
NT-proBNP Urgent
Troponin I Urgent
05/30/24 12:22
Complete Blood Count/With Diff Urgent
05/30/24 Dinner
Cholesterol Lowering
At Your Request: Full Participation
Does patient need a safe tray?: No
Cholesterol Lowering: Sodium, 2 Gram
05/30/24 15:33
CT Chest W/o Iv Contrast Urgent
Comment:
Reason For Exam: left sided plueral effusion
05/30/24 15:35
Admit/Transfer Patient As Directed
Co-Sign Provider:
Level of Care: Observation services
Assign to:: Telemetry
Physician / Group: elsy leon
Diagnosis: chest pain concern angina, coates likely plueral eff left side
Reason for Telemetry: Arrhythmia
Date to Stop Telemetry: 06/02/24
Time to Stop Telemetry: 11:00
Reason for Hospitalization: chest pain concern angina, coates likely plueral eff left side
Code Status As Directed
Resuscitation Status: Do not resuscitate
Reached after discussion with pt or family/Healthcare POA: Yes
Decision communicated with: Per patient
DNR Bracelet Application ONCE
05/30/24 15:38
PRN Pain Medication Management As Directed
May give lesser potent ordered pain med per pt: Yes
preference::
Protocol:: Medication orders for pain may be administered in a
manner that supports deferring to patient preference
when the pt is:
- Requesting an ordered lesser potent pain medication.
Least to most potent pain medications are defined
as: acetaminophen < NSAID < tramadol < opioids
(morphine, oxycodone, hydromorphone).
- Requesting a lesser dose of the same medication IF
ORDERED.
- Requesting a less intrusive route of administration
if both routes are prescribed by the provider (PO <
IV).
05/30/24 17:04
Acetaminophen [Tylenol] 650 mg PO Q4HPRN PRN
Midodrine [ProAmatine] 5 mg PO TID @ 0800,1200,1700
05/30/24 17:04
VTE Contraindication Routine
VTE Mechanical Device Contraindication: Medical Contraindication
Pharmocologic Contraindication: Medical Contraindication
Comment: pt on eliquis
Activity As Directed
Activity Level: As Tolerated
Intake/ Output As Directed
Frequency: Per unit guidelines
Vital Signs As Directed
Frequency: Per unit guidelines
Weight As Directed
Frequency: Daily
Pt Eval And Treat Routine
Activity Level: As Tolerated
05/30/24 17:25
Basic Metabolic Panel Urgent
Troponin I Urgent
05/30/24 20:00
Apixaban [Eliquis] 5 mg PO BID
Diltiazem [Cardizem] 120 mg PO BID
Dofetilide [Tikosyn] 250 mcg PO Q12H
05/31/24 00:14
Troponin I Urgent
05/31/24 06:00
Basic Metabolic Panel IN AM
Cardiovascular Evaluation IN AM
Complete Blood Count/With Diff IN AM
05/31/24 08:00
Furosemide [Lasix] 20 mg PO Q48H
Multivitamin [Theragran] 1 tablet PO DAILY
06/02/24 11:00
DC Protocol for Telemetry ONCE
Abnormal Lab Results
05/30/24 05/30/24
12:21 12:22
MCHC 32.8 L g/dL
(33.0-37.0)
RDW 15.9 H %
(11.5-14.5)
Absolute Lymphs (auto) 0.8 L 10^3/uL
(1.2-3.4)
Absolute Monos (auto) 0.7 H 10^3/uL
(0.1-0.6)
Lymphocytes % 12.5 L %
(20.5-51.1)
Monocytes % 11.3 H %
(1.7-9.3)
D-Dimer 0.57 H ug/mlFEU
(0.00-0.50)
05/30/24 12:22
05/30/24 12:21
Vital Signs
Initial and Last Documented VS:
Initial Vital Signs
Temp Pulse Resp BP Pulse Ox
98 F 82 22 129/65 99
05/30/24 10:44 05/30/24 10:44 05/30/24 10:44 05/30/24 10:44 05/30/24 10:44
Last Documented Vital Signs
Temp Pulse Resp BP Pulse Ox
97.9 F 66 18 114/64 97
05/31/24 03:00 05/31/24 03:00 05/31/24 03:00 05/31/24 03:00 05/31/24 03:00
MDM/Problems Addressed
Differential Diagnosis Includes:
Patient describing progressive shortness of breath with exertion. Possibly pulmonary in etiology. Theoretically could be an anginal equivalent. Clinically stable and nontoxic. Workup including heart failure pneumonia CHF. Clinically doubt
pulmonary emboli. D-dimer age-adjusted is normal.
*Radiology
Radiology exam reviewed: radiology read reviewed (Small to moderate loculated effusion on the left trace right pleural effusion)
*Pulse Oximetry
Patient hypoxic: no
*Associate Artistic Director Interpretation
Rate: normal
Interpretation: normal
Heart Rate: 80
Rhythm: sinus
*Critical Care Note
Total Time (30-74mins, 75-104mins- exclusive of procedures): Not Applicable
Data Reviewed
Review of Other/Old Records Reveals: Labs, Records, Radiology Studies and Testing
Update Note
Update Note:
Patient describing significant dyspnea on exertion even just to the bathroom a few feet away. Not convinced the pleural effusions totally explain her symptoms. Possible anginal equivalent. Admit for further workup and care
ED Attending Note
-
Portions of this chart may have been created with voice recognition software.� Occasional wrong word or��sound alike� substitutions may have occurred due to the inherent limitations of voice recognition software.
Discharge Plan
Departure
Patient Disposition: Admit
Date of Disposition: 05/30/24
Time of Disposition: 14:15
Presentation/result/management discussed w/ accepting MD/DO: Hospitalist
Discharge Problem:
Significant dyspnea on exertion
Interventions
Interventions:
*Risk Screen - Suicide Last Done: 05/30/24 10:44
*General Assessment Last Done: 05/30/24 10:44
*Neglect/Abuse Screening Last Done: 05/30/24 10:44
ED- Fall Risk Assessment Last Done: 05/30/24 16:53
*ED COVID-19 Vaccine History Last Done: 05/30/24 11:09
*Nursing Disposition Last Done: 05/30/24 16:53
ED- Cardiac Assessment Last Done: 05/30/24 11:32
ED- Pulmonary Assessment Last Done: 05/30/24 11:32
Discharge Date and Time
Discharge Date/Time: 05/30/24 16:55
[2024-05-30 12:51] LABS: NT-proBNP 243 pg/ml; Troponin I < 0.012 ng/ml
--- NOTE | 2024-05-30 14:57 | HPS.HSE ---
Addendum entered and electronically signed by ELIZA James 05/30/24 18:25:
Paroxysmal A-fib
Will decrease Eliquis to 2.5 mg twice daily due to age> 80,wt <60 EKG
Addendum entered and electronically signed by Riley Huddleston MD 05/30/24 15:46:
I saw and examined the patient.
The AGRICULTURE WORKER's note was reviewed and I agree with the note.
Comment:
83 female past medical history of atrial fibrillation, recurrent pleural effusion, hyperlipidemia who is presenting from home with complaint of chest discomfort and atypical pain. Patient states some dull chest achiness this morning. States that
symptoms have resolved. Stated mild shortness of breath which has also resolved. States of chronic dyspnea. Denies any PND orthopnea. Denies any lower extremity edema. No coughing. Denies any fevers or chills. Denies any left substernal chest
pain with rest or exertion.
General: Comfortable and Conversant; No Pain, Fever or Chills
HEENT: NormoCephalic, Anicteric, Moist mucous membranes, PERRLA, [place] Conjunctivae, No Ptosis, Hearing Impaired and Other
Respiratory: Decreased breath sounds on the left compared to the right
Cardiac: S1/S2, Regular Rhythm and Murmur NO Peripheral Edema or Calf Tenderness
GI: Soft, Non Tender, Non Distended, Normal Bowel Sounds and No Hepatosplenomegaly
Musculoskeletal: No Clubbing, No Cyanosis and No Edema
Skin: Warm and Dry; No Rash or Jaundice
Neuro: AO x 3, No Motor Deficits, Nonfocal/grossly intact, No Sensory Deficits and Other (Chronic [place]); No Slurred Speech, Facial Droop, Tremors or Sedated
Psych: Calm
Impression
Atypical chest pain
Shortness of breath chronic
Atrial fibrillation
Chronic coagulopathy with Eliquis
Cervical radiculopathy
Chronic hypertension
History of pleural effusion status post thoracentesis
Plan
Chest x-ray noted with effusion
Afebrile. On room air.
Check CT chest to further assess
Continue to trend troponin
First set negative
EKG with normal sinus rhythm with ventricular rate of 81. QTc of 473. Nonspecific T wave abnormality.
Patient not overtly fluid overloaded. proBNP 243.
D-dimer was checked in the ER with 0.53 based on age numbers appropriate and actually lower
DVT prophylaxis
Observation
DNR
Original Note:
Family Physician
-
Family Physician: Albert Richard
Chief Complaint
-
ARANDA 6 to 9 months, chest pressure this a.m.
History of Present Illness
83-year-old female complaining of dyspnea on exertion ongoing for approximately 6 to 9 months however progressive over the past few weeks. She reports waking up 2 nights ago very short of breath. She states this morning she had a dull ache across
her chest that lasted approximately 30 minutes with no associated radiation or increased shortness of breath. She came to the hospital today with her daughter who is having an MRI so she decided to come to the ER for evaluation. She denies
headache, fever, chills, palpitations, cough, abdominal pain, nausea, vomiting, diarrhea, urinary symptoms, rash. She has past medical history of paroxysmal A-fib, chronic diastolic CHF, orthostatic HTN, HLD, [place], GERD, right rotator cuff tear
rupture long head bicep tendon June [address] Mitchell, cervical radiculopathy.
Medical History
Past Medical History
Past Medical History: Reports Arrhythmia, CHF and HTN
Additional Past Medical History:
Recurrent pleural effusion
Paroxysmal A-fib
COVID-19 infection March 2022
hyperlipidemia
hearing impairment
15 pound weight loss since March
Past Surgical History: Reports Appendectomy, Cholecystectomy, Gynocological (Hysterectomy) and Orthopedic (Knee surgery, foot surgery)
Social History
Tobacco: Non-smoker
Alcohol: None
Drug: None
Living: With Family
Family History
Family History: Cancer (Mother had stomach cancer) and Other (Father of old age)
Allergies / Home Medications
Allergies reflects when Allergies were last updated in [facility].
Home Medications with original date entered in [facility]
Allergy/Medication List:
Allergies
Allergy/AdvReac Type Severity Reaction Status Date / Time
No Known Allergies Allergy Verified 05/30/24 10:48
Home Medications
therapeutic multivitamin 1 tab PO DAILY Supplement 04/25/22
apixaban 5 mg tablet (Eliquis) 5 mg PO BID #6 tabs 04/29/22
dofetilide 250 mcg capsule 250 mcg PO Q12H 30 days #60 caps 06/25/22
diltiazem HCl 120 mg tablet 120 mg PO BID Heart Disease/Condition 09/15/22
coenzyme Q10 30 mg capsule 30 mg PO DAILY 09/18/23
midodrine 5 mg tablet 5 mg PO TID 09/18/23
furosemide 40 mg tablet 20 mg PO Q48H 05/30/24
Review of Systems
-
History Source: Patient
A 12 point ROS was completed and negative except as noted: Yes
Constitutional: Denies Fever, Weight Gain, Weight Loss, Fatigue or Chills
EENT: Reports Other (Chronic [place]); Denies Sore Throat or Runny Nose
Respiratory: Reports Trouble Breathing (ARANDA); Denies Cough
Cardiac: Reports Chest Pain (Dull ache across the upper chest today); Denies Diaphoresis, Palpitations or Syncope
Abdomen/GI: Denies Abdominal Pain, Nausea, Vomiting, Diarrhea, Constipated, Bloody Stools or Black Stools
: Denies Dysuria, Frequency, Flank Pain, Incontinence, Difficulty Voiding or Urgency
Musculoskeletal: Denies Joint Pain, Joint Swelling or Edema
Skin: Denies Itching or Rash
Neurological: Denies Dizzy, Headache or Weakness
Endocrine: Reports No Symptoms
Hematologic/Lymphatic: Reports No Symptoms
Psych: Reports Calm
Physical Exam
Vital Signs
Vital Signs
Temp Pulse Resp BP Pulse Ox
98 F 78 27 140/85 98
05/30/24 10:44 05/30/24 11:17 05/30/24 11:17 05/30/24 11:15 05/30/24 11:32
Physical Exam
General: Comfortable and Conversant; No Pain, Fever or Chills
HEENT: NormoCephalic, Anicteric, Moist mucous membranes, PERRLA, [place] Conjunctivae, No Ptosis, Hearing Impaired and Other
Respiratory: Clear; No Wheezes, Rales or Rhonchi
Cardiac: S1/S2, Regular Rhythm and Murmur (3/6 systolic); No Rub, Gallop, Peripheral Edema or Calf Tenderness
Breast: Deferred by me
GI: Soft, Non Tender, Non Distended, Normal Bowel Sounds and No Hepatosplenomegaly
Rectal: Deferred by Provider
Genito-urinary: Deferred by me
Musculoskeletal: No Clubbing, No Cyanosis and No Edema
Skin: Warm and Dry; No Rash or Jaundice
Neuro: AO x 3, No Motor Deficits, Nonfocal/grossly intact, No Sensory Deficits and Other (Chronic [place]); No Slurred Speech, Facial Droop, Tremors or Sedated
Psych: Calm
Laboratory Results
-
05/30/24 12:22
Laboratory Results
Troponin I < 0.012 ng/ml 05/30/24 12:21
Data Reviewed
-
Diagnostic Radiology: Report Reviewed by me
Lab Data: Labs Reviewed by me
Impression/Plan
-
Impression/plan:
Observation telemetry
#Dyspnea on exertion likely secondary to bilateral pleural effusions left greater than right
-Hx recurrent pleural effusions with thoracentesis left side x 3-reactive rare atypical mesothelial cells specimen on 09/18/2023
-Check CT chest noncontrast to evaluate left pleural effusion if needs thoracentesis
CXR:Small/moderate, loculated left pleural effusion with adjacent atelectasis which is minimally increased in size from prior.
There is additional likely trace right-sided pleural effusion.
#Chest pressure possible angina
Troponin <0.012 will trend
-Continue Eliquis and Cardizem twice daily
EKG: NSR 81 bpm, QTc 473 MS, possible left atrial enlargement
#A-jyl-jcxofuvika
-Continue Tikosyn 250 mcg p.o. every 12 hours with hold parameters
-Continue Eliquis 5 mg twice daily
-Continue Cardizem 120 mg p.o. twice daily with hold parameters
#Chronic diastolic CHF
-I/O, daily weights
-Continue furosemide 20 mg p.o. every 48 H
-Follows with [facility]
2D echo 01/02/2024: EF 55-60%, normal LVS LVSF, no wall abnormalities, no valvular disease. No pulm HTN
#Hypotension orthostatic
BP 140/85
-Continue midodrine 5 mg p.o. 3 times daily
# GERD
-No reported meds
Other PMH:
Right rotator cuff tear rupture long head bicep tendon June [address] Mitchell conservative patient opted no surgery
Cervical radiculopathy
[place]
DVT prophylaxis
Continue Eliquis
DNR
[2024-05-30] MEDS: ProAmatine 5 MG PO (17:35)
[2024-05-30 17:56] LABS: Blood Urea Nitrogen 24 mg/dl (7-17); Calcium 9.2 mg/dl (8.4-10.2); Carbon Dioxide 26 mmol/L (22-30); Chloride 104 mmol/L (98-107); Estimated Creatinine Clearance 49 ml/min; Glucose 101 mg/dl (70-99); Potassium 3.9 mmol/L (3.5-5.1); Sodium 138 mmol/L (135-145); eGFR > 60.00
[2024-05-30 18:07] LABS: Troponin I < 0.012 ng/ml
[2024-05-30] MEDS: TIKOSYN 250 MCG PO (19:53)
[2024-05-30] MEDS: CARDIZEM 120 MG PO (19:54)
[2024-05-30] MEDS: ELIQUIS 2.5 MG PO (19:55)
[2024-05-31] VITALS (7 sets, daily range): BP systolic 102–153; BP diastolic 57–81; PULSE 76; O2SAT 97; BMI 21.6
[2024-05-31 00:47] LABS: Troponin I < 0.012 ng/ml
[2024-05-31 06:52] LABS: % Basophils 1.3 % (0-2); % Eosinophils 3.6 % (0-6); % Immature Granulocytes 0.2 % (0-0.5); % Lymphocytes 14.6 % (20.5-51.1); % Monocytes 11.5 % (1.7-9.3); % Neutrophils 68.8 % (42.2-75.2); Absolute Basophils 0.1 10^3/uL (0-0.2); Absolute Eosinophils 0.2 10^3/uL (0-0.7); Absolute Lymphocytes 0.8 10^3/uL (1.2-3.4); Absolute Monocytes 0.6 10^3/uL (0.1-0.6); Absolute Neutrophils 3.6 10^3/uL (1.4-6.5); Hematocrit 38.8 % (37.0-47.0); Hemoglobin 12.5 g/dL (12.0-16.0); Mean Corp Hgb Conc. 32.2 g/dL (33.0-37.0); Mean Corpuscular Hgb 27.8 pg (27.0-31.0); Mean Corpuscular Volume 86.2 fL (81.0-99.0); Mean Platelet Volume 9.9 fL (7.4-10.4); Nucleated Red Blood Cells % 0 %; Platelet Count 197 10^3/uL (130-400); White Blood Cell Count 5.2 10^3/uL (4.8-10.8)
[2024-05-31 07:19] LABS: Blood Urea Nitrogen 20 mg/dl (7-17); Calcium 9.2 mg/dl (8.4-10.2); Carbon Dioxide 27 mmol/L (22-30); Chloride 104 mmol/L (98-107); Estimated Creatinine Clearance 49 ml/min; Glucose 82 mg/dl (70-99); HDL Cholesterol 44 mg/dl; LDL Cholesterol, Calculated 145 mg/dl; Sodium 137 mmol/L (135-145); Total Cholesterol 203 mg/dl (50-199); Triglyceride 72 mg/dl (10-149); Very Low Density Lipoprotein 14 mg/dl (0-30); eGFR > 60.00
[2024-05-31] MEDS: ELIQUIS 2.5 MG PO ×2 (07:58→20:07)
[2024-05-31] MEDS: THERAGRAN 1 TABLET PO (07:58)
[2024-05-31] MEDS: CARDIZEM 120 MG PO ×2 (07:58→20:06)
[2024-05-31] MEDS: LASIX 20 MG PO (07:58)
[2024-05-31] MEDS: ProAmatine 5 MG PO ×3 (07:59→16:21)
[2024-05-31] MEDS: TIKOSYN 250 MCG PO ×2 (07:59→20:08)
--- NOTE | 2024-05-31 09:22 | CON.PUL ---
Consultation
Consultation Request
Date/Time Consultation Requested: 05/31/24
Date/Time Consultation Performed: 05/31/24
Performing Provider: Bentley
Reason for Consultation: Effusion
Medical History
-
History of Present Illness:
Patient is an 83-year-old female with previous history of atrial fibrillation, recurrent pleural effusion presenting to ER from home with complaints of chest discomfort and atypical chest pain. She had chest imaging obtained showing chronic L
sided pleural effusion that is well known. She is currently stable on RA, has no SOB more than usual.
In ER, troponin/proBNP negative, cardiac w/u negative. D-dimer neg as well.
She has stated in the past she no longer wants to undergo thoracentesis or invasive biopsy/surgery for her effusion and pleural thickening. She followed with Dr Garg in the office.
Past Medical History
Past Medical History: Other (see list below)
Social History
Tobacco: Non-smoker
Alcohol: None
Drug: None
Family History
Family History: Reviewed & Not Pertinent
Allergies / Home Medications
Allergies
Allergy/AdvReac Type Severity Reaction Status Date / Time
No Known Allergies Allergy Verified 05/30/24 10:48
Home Medications
�Medication �Instructions �Recorded �Confirmed �Last Taken �Type
therapeutic multivitamin 1 tab PO DAILY Supplement 04/25/22 05/30/24 06/25/23 History
apixaban 5 mg tablet (Eliquis) 5 mg PO BID #6 tabs 04/29/22 05/30/24 05/30/24 Rx
dofetilide 250 mcg capsule 250 mcg PO Q12H 30 days #60 caps 06/25/22 05/30/24 05/30/24 Rx
diltiazem HCl 120 mg tablet 120 mg PO BID Heart 09/15/22 05/30/24 05/30/24 History
Disease/Condition
coenzyme Q10 30 mg capsule 30 mg PO DAILY Supplement 09/18/23 05/30/24 Unknown History
midodrine 5 mg tablet 5 mg PO TID Blood Pressure 09/18/23 05/30/24 05/30/24 History
furosemide 40 mg tablet 20 mg PO Q48H Fluid 05/30/24 05/30/24 Unknown History
Retention/Swelling
Review of Systems
-
History Source: Patient
All other systems: Negative unless noted
Vitals / Labs / Diagnostic Testing
Vital Signs
Temp Pulse Resp BP Pulse Ox
97.7 F 70 18 129/80 96
05/31/24 08:09 05/31/24 08:09 05/31/24 08:09 05/31/24 08:09 05/31/24 08:09
Lab Data
05/31/24 05:48
05/31/24 05:48
Diagnostic Testing:
Physical Exam
-
HEENT: Normocephalic, Anicteric and Moist Mucous Membranes
Cardiovascular: S1/S2 and Regular Rhythm
Respiratory: Clear (diminished overall) and Non-Labored Respirations
GI: Soft, Non Distended and Non Tender
Neurology: Awake, Alert, Oriented and No Motor Deficits
Skin: Warm, Dry and Good Color
General: Comfortable and Other (NAD)
Assessment
-
Patient is an 83-year-old female with previous history of atrial fibrillation, recurrent pleural effusion presenting to ER from home with complaints of chest discomfort and atypical chest pain. She had chest imaging obtained showing chronic L
sided pleural effusion that is well known. She is currently stable on RA, has no SOB more than usual. In ER, troponin/proBNP negative, cardiac w/u negative. D-dimer neg as well. She has stated in the past she no longer wants to undergo
thoracentesis or invasive biopsy/surgery for her effusion and pleural thickening. We are consulted for evaluation 05/31/24.
Chronic L sided pleural effusions with associated pleural thickening s/p numerous thoracentesis with atypical cyto
Suspicious for mesothelial neoplasm
New small anterior mediastinal mass to left of midline/superficial to the pericardium
Potential etiologies: CHF, hypoalbuminemia, asbestos related pleural disease(*), MPE
Denies exposure to asbestos(*)
General malaise, weakness, unintentional wt loss 20 lbs since Mar 2022, decreased oral intake (about 1/4 of her usual portion sizes) since after COVID illness
Conditions [employer]:
Adm DH 06-04 to 23 for CHF, received L thoracentesis, not seen by Pulmonology during that adm
CAD, sestamibi suspicious for RCA disease
AFib, new onset Apr 2022, on apixaban
Chronic LEFT pleural effusion s/p numerous L thoracentesis (see below)
Hyponatremia
Subacute transaminitis
COVID Mar 2022, received paxlovid
Crohn's disease
HTN
CHF
HLD
[place]
Appendectomy
Cholecystectomy
Hysterectomy
Knee and foot surgery
Nonsmoker
Denies exposure to asbestos
Plan:
Respiratory status stable, currently on room air
No complaints
Status post multiple thoracentesis on LEFT --
09/18/23 - wbc 1447 - glu 83 - tp 4.7 - 289 - culutre neg - cyto still showing atypical mesothelial cells but the count is scant
07/24/23- 7.48 - wbc 176 - glu 86 - tp 4.3 - ldh 193 (serum tp 7.4) - culture neg - cyto w/ atypical mesothelial cells stain positive for pancytokeratin and calretinin
Although not definitive, the overall results are atypical and is concerning for a mesothelial neoplastic process (per report)
06/20/2022 culture neg - cyto negative, reactive mesothelial cells
06/06/22 culture neg - cyto with atypical cells in the background of reactive mesothelial and macrophages which may represent reactive mesothelial proliferation + pancytokeratin, calretinin, desmin, MOC31
Suggestive of mesothelioma
Reviewed prior images, pleural calcifications with pleural thickening, possible rounded atelectasis at left base noted
Denies previous lung disease or cancer conditions
Denies exposure to asbestos(*), confirmed with family
Up to date on cancer screenings--Colonoscopy 20 y ago, mammogram 1 y ago negative; Hysterectomy 1968, no cancer identified
Follows with Dr Garg as outpatient--she has declined further evaluation such as pleural biopsy/VATS for her recurrent left pleural effusion
She has new findings of possible nodule on CT but she has declined any invasive testing biopsies, I reviewed this again with her today
She has declined the need for thoracentesis today also, denies SOB
No indication for antibiotics from pulmonary perspective
Has been culture negative thus far on prior taps
Trop/proBNP neg
Resumed on home meds
Cardiac w/u negative
DVT prophylaxis-on anticoagulation
Nutrition
Early mobilization
Given lack of findings, can assess for discharge planning
Can follow up again in our office for further w/u if indicated
Diagnostic Data
CXR 06-18-22, c/w May and Apr 2022. Bilateral PF, very small at R and small at L since 04-25-22 (no previous films available). Recurrent L pleural effusion as c/w post L tap CXR on 06-06
CT Chest 05/30/24- Partially calcified pleural plaque. Progressive left pleural thickening. Loculated pleural effusion. Parenchymal consolidation at left lung base. Interval development of small anterior mediastinal mass to left of midline,
superficial to the pericardium. Consider mesothelioma. Mild to moderate distention of the esophagus, containing intraluminal material, which may be related to reflux, or esophageal dysmotility.
Chest US 03/28/24- Negative for right pleural effusion. Small complex left pleural effusion.
CTA CAP 05-29-22, no comparison CT
IMPRESSION:
1. There is no CT evidence for aortic dissection. No pulmonary embolism. There is significant atherosclerotic vascular disease. No aneurysm.
2. Bilateral pleural effusions, left greater than right. Bibasilar consolidation. Pleural calcifications consistent with asbestos exposure.
3. No adenopathy.
4. 10 cm hypodense lesion in the right kidney consistent with a simple cyst. Solid organs otherwise unremarkable.
5. Cardiomegaly. Small pericardial effusion. Mild to moderate coronary artery calcifications.
ECHO 01/02/24- Normal left ventricular size, wall thickness and systolic function. No regional wall motion abnormalities are seen. LV ejection fraction is 55-60%. No significant valve disease. Compared to the previous echo from Feb 2023, there is
no significant change.
TTE 04-26-22 CONCLUSIONS - Normal left ventricular chamber size. Normal left ventricular wall thickness. Normal left ventricular systolic function. Estimate ejection fraction of 55% visually. There are no regional wall motion abnormalities
noted. Diastolic function indeterminate due to atrial fibrillation. Trileaflet aortic valve. Aortic sclerosis without stenosis. Trace aortic regurgitation. Mitral valve opens normally. Thickened, mildly calcified mitral valve leaflets. Mitral
annular calcification. Trace mitral regurgitation. Tricuspid valve opens normally. Trace tricuspid regurgitation. Estimated pulmonary artery pressure of 30-35 mmHg assuming a right atrial pressure of 8-13 mmHg. Mildly dilated right atrium. Normal
right ventricular size. Normal right ventricular systolic function. Pleural effusion present. Since echocardiogram July 2021, patient is now in A. fib and there is a pleural effusion.
Reports and relevant images were personally reviewed.
Total time spent on this consultation __75__ minutes which includes review of history, physical exam, medications, laboratory data, personal review of imaging, extensive review of outpatient records, discussion with care team and respiratory therapy.
--- NOTE | 2024-05-31 11:40 | W.PN.HOSP.TC ---
Today's Communication/Plan
-
reduce eliquis
home vn
Pulm recs
Assessment / Plan
Assessment / Plan
General: Comfortable and Conversant; No Pain, Fever or Chills
HEENT: NormoCephalic, Anicteric, Moist mucous membranes, PERRLA, [place] Conjunctivae, No Ptosis, Hearing Impaired and Other
Respiratory: Decreased breath sounds on the left compared to the right
Cardiac: S1/S2, Regular Rhythm and Murmur NO Peripheral Edema or Calf Tenderness
GI: Soft, Non Tender, Non Distended, Normal Bowel Sounds and No Hepatosplenomegaly
Musculoskeletal: No Clubbing, No Cyanosis and No Edema
Skin: Warm and Dry; No Rash or Jaundice
Neuro: AO x 3, No Motor Deficits, Nonfocal/grossly intact, No Sensory Deficits and Other (Chronic [place]); No Slurred Speech, Facial Droop, Tremors or Sedated
Psych: Calm
#Dyspnea on exertion likely secondary to left pleural loculated effusion, pleural thickening, possible mesothelioma
-Hx recurrent pleural effusions with thoracentesis left side x 3-reactive rare atypical mesothelial cells specimen on 09/18/2023
-CT chest showing Partially calcified pleural plaque. Progressive left pleural thickening. Loculated pleural effusion. Parenchymal consolidation at left lung base. Interval development of small anterior mediastinal mass to left of midline,
superficial to the pericardium. Consider mesothelioma.
-Await further pulm recs if patient will require CTS and or Bronchoscopy with biopsy etc.
-Pt was overwhelmed with CT results. Would to discuss with pulm. Told her to call family if need assistance (majority of family away on vacation).
-Trop were negative x 3.
#D-nfl-eisznaylvb
-Continue Tikosyn 250 mcg p.o. every 12 hours with hold parameters
-Eliquis dose decreased as with weight less than 60 kg, age greater than 80 years old to 2.5 mg twice daily
-Continue Cardizem 120 mg p.o. twice daily with hold parameters
#Chronic diastolic CHF
-I/O, daily weights
-Continue furosemide 20 mg p.o. every 48 H
-Follows with [facility]
echo 01/02/2024: EF 55-60%, normal LVS LVSF, no wall abnormalities, no valvular disease. No pulm HTN
#Hypotension orthostatic
-Continue midodrine 5 mg p.o. 3 times daily
# GERD
-No reported meds
-CT chest Mild to moderate distention of the esophagus, containing intraluminal material, which may be related to reflux, or esophageal dysmotility.
-start PPI
Other PMH:
Right rotator cuff tear rupture long head bicep tendon June [address] Mitchell conservative patient opted no surgery
Cervical radiculopathy
ATMA[place]LUAK
DVT prophylaxis
Continue Eliquis
DNR
PT-home health
Anticipated Discharge: Within 24 hours
Subjective/Interval History
-
Date of Service: May 31, 2024
states feeling sob while working w/PT
Objective Data
-
Labs:
Laboratory Results
05/31/24
05:48
WBC 5.2
Hgb 12.5
Hct 38.8
Plt Count 197
Sodium 137
Potassium 4.0
Chloride 104
Carbon Dioxide 27
BUN 20 H
Creatinine 0.7
Glucose 82
Calcium 9.2
Vital Signs:
Vital Signs
Temp Pulse Resp BP Pulse Ox
97.4 F 79 20 134/74 96
05/31/24 11:32 05/31/24 11:32 05/31/24 11:32 05/31/24 11:32 05/31/24 11:32
I&O
05/30/24 05/31/24 06/01/24
06:59 06:59 06:59
Intake Total 600 / 600
Balance 600 / 600
--- NOTE | 2024-05-31 12:58 | CM ---
Pt seen bedside w/ family. Initial assessment completed. Admitted for dyspnea
Pt reports she lives alone in a 2STH- 2 steps to enter. Pt is independent w/ ambulating, has grab bars in the home. Pt is independent w/ ADLs.
Pt was at [facility] about a year ago, had VN/PT following rehab d/c. Not sure of the provider.
Address, points of contact and insurance verified
PCP: Dr. Richard
Pharmacy: [facility]
Therapy evaluated pt and is recommending HH at d/c. Pt currently declining this, states she doesn't need this service
Pt currently admitted as OBS. BORGES reviewed, pt given copy, copy in chart
Plan: Home; no needs
[2024-06-01 03:00] VITALS: BP 117/65
[2024-06-01 04:56] VITALS: BMI 21.7
[2024-06-01 07:33] VITALS: BP 120/69
[2024-06-01] MEDS: ProAmatine 5 MG PO (08:36)
[2024-06-01] MEDS: THERAGRAN PO ×2 (08:36→08:41)
[2024-06-01] MEDS: ELIQUIS 2.5 MG PO (08:36)
[2024-06-01] MEDS: TIKOSYN 250 MCG PO (08:36)
[2024-06-01] MEDS: CARDIZEM 120 MG PO (08:36)
--- NOTE | 2024-06-01 10:38 | W.PN.HOSP.TC ---
Today's Communication/Plan
-
dc home
OP pulm f/u
Assessment / Plan
Assessment / Plan
General: Comfortable and Conversant; No Pain, Fever or Chills
HEENT: NormoCephalic, Anicteric, Moist mucous membranes, PERRLA, [place] Conjunctivae, No Ptosis, Hearing Impaired and Other
Respiratory: Decreased breath sounds on the left compared to the right
Cardiac: S1/S2, Regular Rhythm and Murmur NO Peripheral Edema or Calf Tenderness
GI: Soft, Non Tender, Non Distended, Normal Bowel Sounds and No Hepatosplenomegaly
Musculoskeletal: No Clubbing, No Cyanosis and No Edema
Skin: Warm and Dry; No Rash or Jaundice
Neuro: AO x 3, No Motor Deficits, Nonfocal/grossly intact, No Sensory Deficits and Other (Chronic [place]); No Slurred Speech, Facial Droop, Tremors or Sedated
Psych: Calm
#Dyspnea on exertion likely secondary to left pleural loculated effusion, pleural thickening, possible mesothelioma
-Hx recurrent pleural effusions with thoracentesis left side x 3-reactive rare atypical mesothelial cells specimen on 09/18/2023
-CT chest showing Partially calcified pleural plaque. Progressive left pleural thickening. Loculated pleural effusion. Parenchymal consolidation at left lung base. Interval development of small anterior mediastinal mass to left of midline,
superficial to the pericardium. Consider mesothelioma.
-Patient has refused to undergo aggressive and invasive measures including thoracentesis, bronchoscopy, biopsy etc. Patient also stated her family agrees with her plan/decision to avoid any aggressive measures
-Trop were negative x 3.
#Q-ixc-cickpmtckp
-Continue Tikosyn 250 mcg p.o. every 12 hours with hold parameters
-Eliquis dose decreased as with weight less than 60 kg, age greater than 80 years old to 2.5 mg twice daily
-Continue Cardizem 120 mg p.o. twice daily with hold parameters
#Chronic diastolic CHF
-I/O, daily weights
-Continue furosemide 20 mg p.o. every 48 H
-Follows with [facility]
echo 01/02/2024: EF 55-60%, normal LVS LVSF, no wall abnormalities, no valvular disease. No pulm HTN
#Hypotension orthostatic
-Continue midodrine 5 mg p.o. 3 times daily
# GERD
-No reported meds
-CT chest Mild to moderate distention of the esophagus, containing intraluminal material, which may be related to reflux, or esophageal dysmotility.
-start PPI
Other PMH:
Right rotator cuff tear rupture long head bicep tendon June [address] Mitchell conservative patient opted no surgery
Cervical radiculopathy
ME[place]
DVT prophylaxis
Continue Eliquis
DNR
PT-home health
Recommended if persistently short of breath to consider palliative care and/or hospice as outpatient.
More than 30 minutes spent in discharge including
Final examination of the patient
Summarizing hospital stay
Instructions for continuing care to all relevant caregivers
Preparation of discharge records, prescriptions, and referral forms
Total time spent (in minutes): 52
Anticipated Discharge: Today
Subjective/Interval History
-
Date of Service: June 01, 2024
on room air
intermittent sob
denies sob currently.
Patient states she would like to go home and does not want undergo aggressive measures.
Objective Data
-
Vital Signs:
Vital Signs
Temp Pulse Resp BP Pulse Ox
97.6 F 93 18 120/69 96
06/01/24 07:33 06/01/24 07:33 06/01/24 07:33 06/01/24 07:33 06/01/24 07:33
I&O
05/31/24 06/01/24 06/02/24
06:59 06:59 06:59
Intake Total 600 / 600 720 / 720
Output Total 480 / 480
Balance 600 / 600 240 / 240
--- NOTE | 2024-06-01 10:45 | W.DCSUMMARY ---
Discharge Summary
Discharge Data
Date of Admission: 05/30/24
Date of Discharge: 06/01/24
-
Pending Results: No
Hospital Course
83 female past medical history of atrial fibrillation, chronic coagulopathy with Eliquis, history of COVID-19 infection, pleural effusion status post thoracentesis, hearing impairment, presenting from home with complaints of shortness of breath.
Patient is admitted for acute on chronic shortness of breath. States her symptoms has been ongoing for approximately 6 to 9 months. She reports waking up 2 nights ago very short of breath. Patient was eval by pulmonary. Eliquis dose was decreased
based on patient age and weight. Troponin were checked and found to be negative. Patient underwent CT chest Partially calcified pleural plaque. Progressive left pleural thickening. Loculated pleural effusion. Parenchymal consolidation at left
lung base. Interval development of small anterior mediastinal mass to left of midline, superficial to the pericardium. Consider mesothelioma. Mild to moderate distention of the esophagus, containing intraluminal material, which may be related to
reflux, or esophageal dysmotility. Was evaluated by physical therapy who recommended home health. Shortness of breath secondary to chronic left-sided pleural effusion with associated pleural thickening with suspected mesothelial neoplasm. Patient
was eval by pulmonary and patient refused to undergo any aggressive intervention including thoracentesis, bronchoscopy, biopsy. Patient stated family also agreed with her decision to avoid any aggressive medical intervention and procedures.
Recommended to follow-up outpatient with pulmonary and return to ER for shortness of breath. Otherwise recommended patient to follow-up with palliative or hospice as outpatient.
Discharge Plan
-
Patient Disposition: Home with Home Care
Discharge Diagnosis/Procedures: Shortness of breath secondary to chronic left-sided pleural effusion with associated pleural thickening with suspected mesothelial neoplasm
Anterior small mediastinal mass
Condition: Fair
Diet: Regular
Activity: With assistance and As tolerated
Driving Restrictions: Not until seen by your Dr
Referrals:
Ivan Luis MD [Active] - in two to three weeks
Albert Richard MD [Family Provider] - in less than 1 week
Additional Discharge Medication Instructions: Eliquis dose has been decreased to 2.5 mg twice a day.
Prescriptions:
New
Eliquis 2.5 mg Tablet
2.5 mg PO BID Qty: 60 0RF
Continued
therapeutic multivitamin Tablet
1 tab PO DAILY
dofetilide 250 mcg Capsule
250 mcg PO Q12H 30 Days Qty: 60 0RF
diltiazem HCl 120 mg tablet
120 mg PO BID
midodrine 5 mg Tablet
5 mg PO TID
coenzyme Q10 30 mg Capsule
30 mg PO DAILY
furosemide 40 mg tablet
20 mg PO Q48H
Discontinued
Eliquis 5 mg Tablet
5 mg PO BID Qty: 6 0RF
Discharge Orders:
Discharge Patient (As Directed); Ordered 06/01/24
Ordered By: Riley Huddleston
Discharge Date and Time
Discharge Date/Time: 06/01/24 12:46
Print Language: KYRGYZ
--- NOTE | 2024-06-01 10:56 | CM ---
Addendum entered by Heather Saeed 06/01/24 11:26:
Met with patient and daughter bedside, requesting referral to [facility]N, [facility]
Original Note:
CM reviewed chart, patient for discharge today, daughter to provide transportation home. CM will continue to follow for all discharge planning needs.
Plan; home no needs
[2024-06-01 11:20] VITALS: BP 117/72
--- NOTE | 2024-06-01 13:21 | W.PN.PUL.V3 ---
Today's Communication / Plan
-
Increase activity
Wean oxygen
Outpatient pulm evaluation if patient willing
Assessment
-
Patient is an 83-year-old female with previous history of atrial fibrillation, recurrent pleural effusion presenting to ER from home with complaints of chest discomfort and atypical chest pain. She had chest imaging obtained showing chronic L
sided pleural effusion that is well known. She is currently stable on RA, has no SOB more than usual. In ER, troponin/proBNP negative, cardiac w/u negative. D-dimer neg as well. She has stated in the past she no longer wants to undergo
thoracentesis or invasive biopsy/surgery for her effusion and pleural thickening. We are consulted for evaluation 05/31/24.
Chronic L sided pleural effusions with associated pleural thickening s/p numerous thoracentesis with atypical cyto
Suspicious for mesothelial neoplasm
New small anterior mediastinal mass to left of midline/superficial to the pericardium
Potential etiologies: CHF, hypoalbuminemia, asbestos related pleural disease(*), MPE
Denies exposure to asbestos(*)
General malaise, weakness, unintentional wt loss 20 lbs since Mar 2022, decreased oral intake (about 1/4 of her usual portion sizes) since after COVID illness
Conditions [employer]:
Adm 06-04 to 23 for CHF, received L thoracentesis, not seen by Pulmonology during that adm
CAD, sestamibi suspicious for RCA disease
AFib, new onset Apr 2022, on apixaban
Chronic LEFT pleural effusion s/p numerous L thoracentesis (see below)
Hyponatremia
Subacute transaminitis
COVID Mar 2022, received paxlovid
Crohn's disease
HTN
CHF
HLD
[place]
Appendectomy
Cholecystectomy
Hysterectomy
Knee and foot surgery
Nonsmoker
Denies exposure to asbestos
Plan:
She is stable from a pulmonary perspective
Supplemental oxygen as needed-currently on room air
Aspiration precautions
Status post multiple thoracentesis on LEFT --
09/18/23 - wbc 1447 - glu 83 - tp 4.7 - 289 - culutre neg - cyto still showing atypical mesothelial cells but the count is scant
07/24/23- 7.48 - wbc 176 - glu 86 - tp 4.3 - ldh 193 (serum tp 7.4) - culture neg - cyto w/ atypical mesothelial cells stain positive for pancytokeratin and calretinin
Although not definitive, the overall results are atypical and is concerning for a mesothelial neoplastic process (per report)
06/20/2022 culture neg - cyto negative, reactive mesothelial cells
06/06/22 culture neg - cyto with atypical cells in the background of reactive mesothelial and macrophages which may represent reactive mesothelial proliferation + pancytokeratin, calretinin, desmin, MOC31
Suggestive of mesothelioma
Reviewed prior images, pleural calcifications with pleural thickening, possible rounded atelectasis at left base noted
Denies previous lung disease or cancer conditions
Denies exposure to asbestos(*), confirmed with family
Up to date on cancer screenings--Colonoscopy 20 y ago, mammogram 1 y ago negative; Hysterectomy 1968, no cancer identified
Follows with Dr Garg as outpatient--she has declined further evaluation such as pleural biopsy/VATS for her recurrent left pleural effusion
She has new findings of possible nodule on CT but she has declined any invasive testing biopsies
She has declined the need for thoracentesis today also, denies SOB
No indication for antibiotics from pulmonary perspective
Has been culture negative thus far on prior taps
Trop/proBNP neg
Resumed on home meds
Cardiac w/u negative
DVT prophylaxis-on anticoagulation
Nutrition
Early mobilization
Given lack of findings, can assess for discharge planning-no objections from a pulmonary perspective
Can follow up again in our office for further w/u if indicated
Diagnostic Data
CXR 06-18-22, c/w May and Apr 2022. Bilateral PF, very small at R and small at L since 04-25-22 (no previous films available). Recurrent L pleural effusion as c/w post L tap CXR on 06-06
CT Chest 05/30/24- Partially calcified pleural plaque. Progressive left pleural thickening. Loculated pleural effusion. Parenchymal consolidation at left lung base. Interval development of small anterior mediastinal mass to left of midline,
superficial to the pericardium. Consider mesothelioma. Mild to moderate distention of the esophagus, containing intraluminal material, which may be related to reflux, or esophageal dysmotility.
Chest US 03/28/24- Negative for right pleural effusion. Small complex left pleural effusion.
CTA CAP 05-29-22, no comparison CT
IMPRESSION:
1. There is no CT evidence for aortic dissection. No pulmonary embolism. There is significant atherosclerotic vascular disease. No aneurysm.
2. Bilateral pleural effusions, left greater than right. Bibasilar consolidation. Pleural calcifications consistent with asbestos exposure.
3. No adenopathy.
4. 10 cm hypodense lesion in the right kidney consistent with a simple cyst. Solid organs otherwise unremarkable.
5. Cardiomegaly. Small pericardial effusion. Mild to moderate coronary artery calcifications.
ECHO 01/02/24- Normal left ventricular size, wall thickness and systolic function. No regional wall motion abnormalities are seen. LV ejection fraction is 55-60%. No significant valve disease. Compared to the previous echo from Feb 2023, there is
no significant change.
TTE 04-26-22 CONCLUSIONS - Normal left ventricular chamber size. Normal left ventricular wall thickness. Normal left ventricular systolic function. Estimate ejection fraction of 55% visually. There are no regional wall motion abnormalities
noted. Diastolic function indeterminate due to atrial fibrillation. Trileaflet aortic valve. Aortic sclerosis without stenosis. Trace aortic regurgitation. Mitral valve opens normally. Thickened, mildly calcified mitral valve leaflets. Mitral
annular calcification. Trace mitral regurgitation. Tricuspid valve opens normally. Trace tricuspid regurgitation. Estimated pulmonary artery pressure of 30-35 mmHg assuming a right atrial pressure of 8-13 mmHg. Mildly dilated right atrium. Normal
right ventricular size. Normal right ventricular systolic function. Pleural effusion present. Since echocardiogram July 2021, patient is now in A. fib and there is a pleural effusion.
.
Subjective Data
-
Date of Service:
Date of Service: June 01, 2024
Chief Complaint: Pulmonary Follow Up and Dyspnea Follow Up
Subjective:
No complaints of worsening shortness of breath, chest pain, productive cough or abdominal pain
Review of Systems
General: Other (Per HPI)
Objective Data
Data Reviewed
Vital Signs / I&O:
Vital Signs
Temp Pulse Resp BP Pulse Ox
98.0 F 80 18 117/72 98
06/01/24 11:20 06/01/24 11:20 06/01/24 11:20 06/01/24 11:20 06/01/24 11:20
Intake and Output
05/31/24 06/01/24 06/02/24
06:59 06:59 06:59
Intake Total 600 / 600 720 / 720
Output Total 480 / 480
Balance 600 / 600 240 / 240
SaO2: 98
Labs/Micro/Reports
Lab Data
05/31/24 05:48
05/31/24 05:48
== END 2024-06-01 12:46 | disposition home or self-care (01) ==
LOC: 4 WEST ACU 15:42
PROVIDERS: Clinical Nurse Specialist Family Health; ADMITTING PHYSICIAN Hospitalist; EMERGENCY PHYSICIAN Emergency Medicine; FAMILY PHYSICIAN Internal Medicine Geriatric Medicine; OTHER PHYSICIAN Internal Medicine
DX: J90 Pleural effusion, not elsewhere classified (principal); R06.02 Shortness of breath; Z66 Do not resuscitate; I48.0 Paroxysmal atrial fibrillation; M54.12 Radiculopathy, cervical region; I11.0 Hypertensive heart disease with heart failure; D68.9 Coagulation defect, unspecified; Z79.01 Long term (current) use of anticoagulants; I50.32 Chronic diastolic (congestive) heart failure; E87.1 Hypo-osmolality and hyponatremia; K50.90 Crohn's disease, unspecified, without complications; Z79.899 Other long term (current) drug therapy; I95.1 Orthostatic hypotension; K21.9 Gastro-esophageal reflux disease without esophagitis; I31.39 Other pericardial effusion (noninflammatory); Z86.16 Personal history of COVID-19
CPT/HCPCS: 71046; 71250; 80048; 80061; 83880; 84484; 85025; 85379; 93005; 97116; 97162; 99285; G0378

== ENCOUNTER → 2024-10-21 11:25 | Outpatient (REF) | payer OTHER, SELFPAY | LOC: RAD 11:25 | PROVIDERS: ATTENDING PHYSICIAN Internal Medicine Geriatric Medicine | DX: I10 Essential (primary) hypertension (principal); I48.0 Paroxysmal atrial fibrillation; E78.2 Mixed hyperlipidemia; I35.0 Nonrheumatic aortic (valve) stenosis; E55.9 Vitamin D deficiency, unspecified; R06.09 Other forms of dyspnea; M76.31 Iliotibial band syndrome, right leg; I50.30 Unspecified diastolic (congestive) heart failure; I25.10 Atherosclerotic heart disease of native coronary artery without angina pectoris; M17.11 Unilateral primary osteoarthritis, right knee; R25.1 Tremor, unspecified; Z13.89 Encounter for screening for other disorder; H69.92 Unspecified Eustachian tube disorder, left ear; K21.9 Gastro-esophageal reflux disease without esophagitis | CPT/HCPCS: 71046 ==

== ENCOUNTER → 2024-11-27 10:47 | Outpatient (REF) | payer OTHER, SELFPAY ==
[2024-11-27 11:30] LABS: Hematocrit 35.7 % (37.0-47.0); Hemoglobin 11.5 g/dL (12.0-16.0); Mean Corp Hgb Conc. 32.2 g/dL (33.0-37.0); Mean Corpuscular Volume 89.9 fL (81.0-99.0); Nucleated Red Blood Cells % 0 %; Platelet Count 222 10^3/uL (130-400); Red Cell Dist. Width 15.7 % (11.5-14.5)
[2024-11-27 11:46] LABS: Prealbumin (Transthyretin) 11.0 mg/dl (17.6-36.0)
[2024-11-27 11:47] LABS: ALT (SGPT) 14 U/L (0-35); AST (SGOT) 19 U/L (14-36); Albumin 3.3 g/dl (3.5-5.0); Alkaline Phosphatase 100 U/L (38-126); Blood Urea Nitrogen 19 mg/dl (7-17); Calcium 9.1 mg/dl (8.4-10.2); Carbon Dioxide 28 mmol/L (22-30); Chloride 106 mmol/L (98-107); Glucose 83 mg/dl (70-99); HDL Cholesterol 42 mg/dl; LDL Cholesterol, Calculated 164 mg/dl; Potassium 4.3 mmol/L (3.5-5.1); Sodium 135 mmol/L (135-145); Total Protein 7.5 g/dl (6.3-8.2); Very Low Density Lipoprotein 13 mg/dl (0-30); eGFR > 60.00
[2024-11-27 12:00] LABS: Vitamin D, 25-OH*** 28.8 ng/mL (30-80)
[2024-11-27 12:13] LABS: Cortisol, Random 11.3 ug/dl; TSH 2.06 uIU/ml (0.47-4.68)
[2024-11-27 12:38] LABS: CKMB 0.9 ng/ml (0.0-3.4)
[2024-11-27 12:56] LABS: Folate > 20.0 ng/ml (2.76-20); Vitamin B12 525 pg/ml (239-931)
== END ==
LOC: OLABLV 10:47
PROVIDERS: ATTENDING PHYSICIAN Internal Medicine Geriatric Medicine
DX: I10 Essential (primary) hypertension (principal); I48.0 Paroxysmal atrial fibrillation; E78.2 Mixed hyperlipidemia; I35.0 Nonrheumatic aortic (valve) stenosis; E55.9 Vitamin D deficiency, unspecified; R06.09 Other forms of dyspnea; M76.31 Iliotibial band syndrome, right leg; I50.30 Unspecified diastolic (congestive) heart failure; I25.10 Atherosclerotic heart disease of native coronary artery without angina pectoris; M17.11 Unilateral primary osteoarthritis, right knee; R25.1 Tremor, unspecified; Z13.89 Encounter for screening for other disorder; H69.92 Unspecified Eustachian tube disorder, left ear; K21.9 Gastro-esophageal reflux disease without esophagitis
CPT/HCPCS: 36415; 80053; 80061; 82306; 82533; 82550; 82553; 82607; 82746; 84134; 84443; 85025

== ENCOUNTER → 2024-12-25 10:50 | Outpatient (REF) | payer OTHER, SELFPAY ==
[2024-12-25 12:09] LABS: Vitamin D, 25-OH*** 39.7 ng/mL (30-80)
== END ==
LOC: OLABLV 10:50
PROVIDERS: ATTENDING PHYSICIAN Internal Medicine Geriatric Medicine
DX: E55.9 Vitamin D deficiency, unspecified (principal)
CPT/HCPCS: 36415; 82306

== ENCOUNTER → 2025-02-14 10:22 | Outpatient (REF) | payer OTHER, SELFPAY ==
[2025-02-14 11:47] LABS: Hematocrit 40.0 % (37.0-47.0); Hemoglobin 12.9 g/dL (12.0-16.0); Mean Corp Hgb Conc. 32.3 g/dL (33.0-37.0); Mean Corpuscular Volume 88.1 fL (81.0-99.0); Nucleated Red Blood Cells % 0 %; Platelet Count 260 10^3/uL (130-400); Red Cell Dist. Width 14.6 % (11.5-14.5)
[2025-02-14 12:01] LABS: ALT (SGPT) 26 U/L (0-35); AST (SGOT) 26 U/L (14-36); Albumin 3.7 g/dl (3.5-5.0); Alkaline Phosphatase 125 U/L (38-126); Blood Urea Nitrogen 17 mg/dl (7-17); Calcium 9.3 mg/dl (8.4-10.2); Carbon Dioxide 26 mmol/L (22-30); Chloride 103 mmol/L (98-107); Glucose 97 mg/dl (70-99); Potassium 4.4 mmol/L (3.5-5.1); Sodium 133 mmol/L (135-145); Total Protein 9.4 g/dl (6.3-8.2); eGFR > 60.00
[2025-02-14 12:19] LABS: Vitamin D, 25-OH*** 34.2 ng/mL (30-80)
[2025-02-17 03:15] LABS: SSA 52 (Ro)(ENA) Ab, IgG 191 AU/mL (0-40); SSA 60 (Ro)(ENA) Ab, IgG 124 AU/mL (0-40); SSB (La)(ENA) Ab, IgG 72 AU/mL (0-40)
== END ==
LOC: OLABLV 10:22
PROVIDERS: ATTENDING PHYSICIAN Internal Medicine Geriatric Medicine
DX: I10 Essential (primary) hypertension (principal); E78.2 Mixed hyperlipidemia; I50.30 Unspecified diastolic (congestive) heart failure; I25.10 Atherosclerotic heart disease of native coronary artery without angina pectoris
CPT/HCPCS: 36415; 80053; 82306; 82330; 82550; 82652; 83970; 85025; 86041; 86235

== ENCOUNTER → 2025-02-19 09:58 | Outpatient (REF) | payer OTHER, SELFPAY | LOC: OLABLV 09:58 | PROVIDERS: ATTENDING PHYSICIAN Internal Medicine Geriatric Medicine | DX: R77.9 Abnormality of plasma protein, unspecified (principal) | CPT/HCPCS: 36415; 82784; 83521; 84155; 84165; 86334 ==

== ENCOUNTER → 2025-03-21 10:43 | Outpatient (REF) | payer OTHER, SELFPAY ==
[2025-03-21 11:49] LABS: C-Reactive Protein 36.00 mg/L (0.0-10.00)
== END ==
LOC: OLABLV 10:43
PROVIDERS: ATTENDING PHYSICIAN Physician Assistant; FAMILY PHYSICIAN Internal Medicine Geriatric Medicine
DX: M35.00 Sjogren syndrome, unspecified (principal); R06.09 Other forms of dyspnea; R53.83 Other fatigue; R63.4 Abnormal weight loss; R76.89 Other specified abnormal immunological findings in serum
CPT/HCPCS: 36415; 85652; 86140; 86200; 86235